=== PATIENT | male | born 1955 | race Caucasian/White ===

== ENCOUNTER → 2017-01-23 | Outpatient (CLI) | payer BC, OTHER ==
[~2017-01-23] VITALS: Ht 180.3 cm; Wt 127.0 kg
[~2017-01-23] MED LIST: ASPI1TAB PO; FOLI1TAB2 PO; INVO100T PO; JANU100T PO; LIDOCAINE 2% INJ 100 MG/5 ML SDV (FOR ANES.) As Ordered ONE; LOSA50TA21 PO; METF500T PO; NS 1,000 ML IV SCH; OMEP40CA2 PO; PRAV10TA PO; PROPOFOL 200 MG/20 ML VIAL As Ordered ONE; REPA1TAB6 PO; SERT50TA PO
--- NOTE | 2017-01-23 09:42 | ROOR ---
Patient Name: Marvin Gilman Procedure Date: 01/23/2017 9:28 AM Date of : 1955 Age: 61 Room: [facility] Gender: Male Note Status: Finalized Procedure: Upper GI endoscopy Indications: Epigastric abdominal pain, Heartburn Providers: Sea Castillo MD Referring MD: ASAEL PICKERING MD Requesting Provider: Medicines: Monitored Anesthesia Care Complications: No immediate complications. Procedure: Pre-Anesthesia Assessment: - The heart rate, respiratory rate, oxygen saturations, blood pressure, adequacy of pulmonary ventilation, and response to care were monitored throughout the procedure. The Endoscope was introduced through the mouth, and advanced to the second part of duodenum. The upper GI endoscopy was accomplished without difficulty. The patient tolerated the procedure well. Findings: The Z-line was regular and was found 40 cm from the incisors. The exam was otherwise without abnormality. No other significant abnormalities were identified in a careful examination of the stomach. The exam of the duodenum was otherwise normal. Impression: - Z-line regular, 40 cm from the incisors. - The examination was otherwise normal. - No specimens collected. - The examination was otherwise normal. Recommendation: - Patient has a contact number available for emergencies. The signs and symptoms of potential delayed complications were discussed with the patient. Return to normal activities tomorrow. Written discharge instructions were provided to the patient. - High fiber diet. - Discharge patient to home. - Follow an antireflux regimen. - Continue present medications. - Return to referring physician. - The findings and recommendations were discussed with the patient's family. Sae Castillo MD Sea Castillo MD 01/23/2017 9:41:52 AM This report has been signed electronically. Number of Addenda: 0 Note Initiated On: 01/23/2017 9:28 AM Estimated Blood Loss: Estimated blood loss: none.
[2017-01-23 10:07] VITALS: BP 120/63
== END | disposition home or self-care (01) ==
LOC: M OPP 08:42
PROVIDERS: ATTEND Internal Medicine Gastroenterology
DX: R10.13 Epigastric pain (principal); R12 Heartburn; I10 Essential (primary) hypertension; E78.5 Hyperlipidemia, unspecified; E11.9 Type 2 diabetes mellitus without complications; R23.3 Spontaneous ecchymoses; M19.90 Unspecified osteoarthritis, unspecified site; G47.30 Sleep apnea, unspecified; R06.83 Snoring; Z79.82 Long term (current) use of aspirin; Z79.84 Long term (current) use of oral hypoglycemic drugs; Z79.899 Other long term (current) drug therapy; Z80.0 Family history of malignant neoplasm of digestive organs; Z83.71 Family history of colonic polyps; Z87.891 Personal history of nicotine dependence

== ENCOUNTER → 2018-02-20 | Outpatient (CLI) | payer BC, OTHER ==
[2018-02-20 13:23] LABS: APPEARANCE, URINE CLEAR (CLEAR); BACTERIA, URINE AUTO NEGATIVE (NEGATIVE); BILIRUBIN, URINE AUTO NEGATIVE (NEGATIVE); BLOOD, URINE BLOOD 1+ (NEGATIVE); COLOR, URINE YELLOW (YELLOW); GLUCOSE, URINE (UA) AUTO 3+ mg/dL (NEGATIVE); KETONE, URINE AUTO NEGATIVE (NEGATIVE); LEUKOCYTE ESTERASE, URINE AUTO NEGATIVE (NEGATIVE); NITRITE, URINE AUTO NEGATIVE (NEGATIVE); PROTEIN, URINE AUTO NEGATIVE (NEGATIVE); RBC, URINE AUTO 29 /HPF (0-3); SPECIFIC GRAVITY URINE AUTO 1.023 (1.002-1.035); SQUAMOUS EPITHELIAL CELL UR AU 0 /HPF (0-6); UROBILINOGEN, URINE AUTO 0.2 mg/dL (0.0-2.0); WBC, URINE AUTO 3 /HPF (0-3)
[2018-02-20 13:55] LABS: ANION GAP 9 MEQ/L (8-16); BLOOD UREA NITROGEN 14 MG/DL (7-18); CALCIUM LEVEL 9.3 MG/DL (8.8-10.2); CARBON DIOXIDE LEVEL 26 MEQ/L (21-32); CHLORIDE LEVEL 103 MEQ/L (98-107); CREATININE FOR GFR 0.86 MG/DL (0.70-1.30); GLOMERULAR FILTRATION RATE > 60.0 (>49); GLUCOSE, FASTING 179 MG/DL (70-100); POTASSIUM SERUM 4.2 MEQ/L (3.5-5.1); SODIUM LEVEL 138 MEQ/L (136-145)
== END ==
LOC: M SMT 10:20
DX: R31.0 Gross hematuria (principal)
CPT/HCPCS: 80048

== ENCOUNTER → 2018-02-28 | Outpatient (CLI) | payer BC, OTHER ==
[~2018-02-28] MED LIST changes: -ASPI1TAB PO; -FOLI1TAB2 PO; -INVO100T PO; +ISOVUE-370 76% 100ML VIAL (Q9967) As Ordered; -JANU100T PO; -LIDOCAINE 2% INJ 100 MG/5 ML SDV (FOR ANES.) As Ordered ONE; -LOSA50TA21 PO; -METF500T PO; -NS 1,000 ML IV SCH; -OMEP40CA2 PO; -PRAV10TA PO; -PROPOFOL 200 MG/20 ML VIAL As Ordered ONE; -REPA1TAB6 PO; -SERT50TA PO
== END ==
LOC: M RAD 15:38
DX: R31.0 Gross hematuria (principal)
CPT/HCPCS: Q9967

== ENCOUNTER → 2018-04-05 | Outpatient (REF) | payer BC, OTHER ==
[2018-04-05 17:42] LABS: COLLAGEN EPINEPHRINE 110 SECONDS (74-162)
[2018-04-05 17:47] LABS: COLLAGEN ADP 101 SECONDS (56-103)
[2018-04-05 17:59] LABS: INR 1.03; PROTHROMBIN TIME 13.6 SECONDS (12.4-14.5)
[2018-04-05 18:00] LABS: PARTIAL THROMBOPLASTIN TIME 38.9 SECONDS (26.8-37.9)
[2018-04-10 07:25] LABS: DRVV SCREEN 47.4 SEC
[2018-04-10 07:28] LABS: PTT LUPUS TYPE ANTICOAG SCREEN 1.1 (0-1.2)
[2018-04-16 13:53] LABS: APTT 1:2 SUBSTITUTION 34.5 SECONDS; PARTIAL THROMBOPLASTIN TIME 38.9 SECONDS (26.8-37.9)
== END ==
LOC: M LAB REF 16:41
DX: R49.1 Aphonia (principal)
CPT/HCPCS: 86147

== ENCOUNTER → 2018-05-21 | Outpatient (REF) | payer OTHER ==
[2018-05-21 13:21] LABS: APPEARANCE, URINE CLOUDY (CLEAR); BACTERIA, URINE AUTO 1+ (NEGATIVE); BILIRUBIN, URINE AUTO NEGATIVE (NEGATIVE); BLOOD, URINE BLOOD 3+ (NEGATIVE); COLOR, URINE YELLOW (YELLOW); GLUCOSE, URINE (UA) AUTO 3+ mg/dL (NEGATIVE); KETONE, URINE AUTO NEGATIVE (NEGATIVE); LEUKOCYTE ESTERASE, URINE AUTO 3+ (NEGATIVE); NITRITE, URINE AUTO POSITIVE (NEGATIVE); PROTEIN, URINE AUTO 1+ mg/dL (NEGATIVE); RBC, URINE AUTO TNTC /HPF (0-3); SPECIFIC GRAVITY URINE AUTO 1.022 (1.002-1.035); SQUAMOUS EPITHELIAL CELL UR AU 0 /HPF (0-6); UROBILINOGEN, URINE AUTO 0.2 mg/dL (0.0-2.0); WBC, URINE AUTO TNTC /HPF (0-3)
== END ==
LOC: M SMT 12:58
DX: R82.90 Unspecified abnormal findings in urine (principal)
CPT/HCPCS: 81001

== ENCOUNTER → 2018-05-28 | Outpatient (CLI) | payer BC, OTHER | LOC: M CARPUL 09:58 | DX: C67.9 Malignant neoplasm of bladder, unspecified (principal) | CPT/HCPCS: 93306 ==

== ENCOUNTER → 2018-05-28 | Outpatient (CLI) | payer BC, OTHER | LOC: M RAD 09:51 | DX: C67.9 Malignant neoplasm of bladder, unspecified (principal); M51.36 Other intervertebral disc degeneration, lumbar region; M51.34 Other intervertebral disc degeneration, thoracic region; M17.0 Bilateral primary osteoarthritis of knee | CPT/HCPCS: 78306 ==

== ENCOUNTER → 2018-07-31 | Outpatient (REF) | payer BC, OTHER ==
[2018-08-01 10:53] LABS: IMMEDIATE SPIN CROSSMATCH 1 2
== END ==
LOC: M LAB REF 14:03
PROVIDERS: Pediatrics
DX: D64.9 Anemia, unspecified (principal)
CPT/HCPCS: 86900

== ENCOUNTER → 2018-07-31 | Outpatient (CLI) | payer BC, OTHER | LOC: M RAD 13:21 | DX: R06.00 Dyspnea, unspecified (principal); R00.0 Tachycardia, unspecified; K86.2 Cyst of pancreas; C68.0 Malignant neoplasm of urethra | CPT/HCPCS: Q9967 ==

== ENCOUNTER 2018-08-01 09:47 | Outpatient (CLI) | payer BC, OTHER ==
[2018-08-01] MEDS: diphenhydrAMINE 25 MG CAP PO (10:39)
[2018-08-01] MEDS: ACETAMINOPHEN TAB 650MG DOSE (2X325MG) PO (10:39)
== END 2018-08-01 16:45 | disposition home or self-care (01) ==
LOC: M OPCLI4 09:47 → M MSPAV 09:52 → M OPCLI4 16:45
DX: D64.9 Anemia, unspecified (principal)
CPT/HCPCS: 36430

== ENCOUNTER → 2018-11-27 | Outpatient (REF) | payer OTHER ==
[~2018-11-27] MED LIST changes: +ASPI1TAB PO; +BACT800T5 PO; +FOLI1TAB11 PO; +IBUP80TA PO; +INVO100T PO; -ISOVUE-370 76% 100ML VIAL (Q9967) As Ordered; +JANU100T PO; +LOSA50TA5 PO; +METF500T13 PO; +MULT1TAB10 PO; +OMEP40CA2 PO; +PRAV10TA4 PO; +REPA1TAB6 PO; +SERT50TA PO
== END ==
LOC: M SMT 17:08
PROVIDERS: ATTEND Urology
DX: C67.9 Malignant neoplasm of bladder, unspecified (principal)

== ENCOUNTER → 2018-11-29 | Outpatient (CLI) | payer BC, OTHER | LOC: M LAB 11:42 | PROVIDERS: ATTEND Urology | DX: C61 Malignant neoplasm of prostate (principal) ==

== ENCOUNTER → 2018-11-29 | Outpatient (CLI) | payer BC, OTHER ==
[2018-11-29 13:41] LABS: CREATININE FOR GFR 1.8 MG/DL (0.70-1.30)
== END ==
LOC: M LAB 11:32
PROVIDERS: ATTEND Urology
DX: C61 Malignant neoplasm of prostate (principal); K86.2 Cyst of pancreas; R59.0 Localized enlarged lymph nodes

== ENCOUNTER 2019-01-22 07:42 | Day surgery (SDC) | payer BC, OTHER ==
[~2019-01-22] VITALS: Ht 180.3 cm; Wt 110.4 kg
[~2019-01-22 07:42] MED LIST changes: +LIDOCAINE 2% INJ 100 MG/5 ML SDV (FOR ANES.) As Ordered ONE; +NS 1,000 ML IV ONE; +PROPOFOL 200 MG/20 ML VIAL As Ordered ONE; +RANI-280 PO
[2019-01-22] MEDS ORDERED: PROPOFOL 200 MG/20 ML VIAL As Ordered ONE ×2 (09:23→09:44)
--- NOTE | 2019-01-22 09:53 | ROOR ---
Patient Name: Marvin Gilman Procedure Date: 01/22/2019 9:02 AM Date of : 1955 Age: 63 Room: [facility] Gender: Male Note Status: Finalized Procedure: Total Colonoscopy to Cecum + Cold Snare Polypectomy + Hemoclips Indications: Colon cancer screening in patient at increased risk: Colorectal cancer in father Providers: Sea Castillo MD Referring MD: ASAEL PICKERING MD Requesting Provider: Medicines: Monitored Anesthesia Care Complications: No immediate complications. Procedure: Pre-Anesthesia Assessment: - The heart rate, respiratory rate, oxygen saturations, blood pressure, adequacy of pulmonary ventilation, and response to care were monitored throughout the procedure. The Colonoscope was introduced through the anus and advanced to the cecum, identified by appendiceal orifice and ileocecal valve. The colonoscopy was performed without difficulty. The patient tolerated the procedure well. The quality of the bowel preparation was good. Findings: The perianal and digital rectal examinations were normal. Non-bleeding internal hemorrhoids were found during retroflexion. The hemorrhoids were small and Grade I (internal hemorrhoids that do not prolapse). Multiple small and large-mouthed diverticula were found in the recto-sigmoid colon, sigmoid colon and descending colon. A small polyp was found at 30 cm proximal to the anus. The polyp was sessile. The polyp was removed with a cold snare. Resection and retrieval were complete. A large polyp was found at 40 cm proximal to the anus. The polyp was semi-pedunculated. The polyp was removed with a cold snare. Resection and retrieval were complete. To prevent bleeding after the polypectomy, two hemostatic clips were successfully placed (MR conditional). There was no bleeding at the end of the procedure. A medium polyp was found in the transverse colon. The polyp was sessile. The polyp was removed with a cold snare. Resection and retrieval were complete. The exam was otherwise without abnormality on direct and retroflexion views. Impression: - Non-bleeding internal hemorrhoids. - Diverticulosis in the recto-sigmoid colon, in the sigmoid colon and in the descending colon. - One small polyp at 30 cm proximal to the anus, removed with a cold snare. Resected and retrieved. - One large polyp at 40 cm proximal to the anus, removed with a cold snare. Resected and retrieved. Clips (MR conditional) were placed. - One medium polyp in the transverse colon, removed with a cold snare. Resected and retrieved. - The examination was otherwise normal on direct and retroflexion views. - The exam was otherwise normal to the cecum. Recommendation: - Patient has a contact number available for emergencies. The signs and symptoms of potential delayed complications were discussed with the patient. Return to normal activities tomorrow. Written discharge instructions were provided to the patient. - High fiber diet. - Discharge patient to home. - Continue present medications. - Await pathology results. - Telephone GI clinic for pathology results in 1 week. - Repeat colonoscopy for surveillance based on pathology results. - Return to referring physician. - The findings and recommendations were discussed with the patient's family. Sea Castillo MD Sea Castillo MD 01/22/2019 9:52:56 AM This report has been signed electronically. Number of Addenda: 0 Note Initiated On: 01/22/2019 9:02 AM Estimated Blood Loss: Estimated blood loss: none.
[2019-01-22 10:05] VITALS: BP 134/83
== END 2019-01-22 10:14 | disposition home or self-care (01) ==
LOC: M OPP 07:42
PROVIDERS: ATTEND Internal Medicine Gastroenterology
DX: Z12.11 Encounter for screening for malignant neoplasm of colon (principal); Z80.0 Family history of malignant neoplasm of digestive organs; K64.0 First degree hemorrhoids; D12.3 Benign neoplasm of transverse colon; K57.30 Diverticulosis of large intestine without perforation or abscess without bleeding; G47.30 Sleep apnea, unspecified; Z79.84 Long term (current) use of oral hypoglycemic drugs; Z79.899 Other long term (current) drug therapy

== ENCOUNTER → 2019-06-06 | Outpatient (CLI) | payer BC, OTHER ==
[~2019-06-06] MED LIST changes: -ASPI1TAB PO; +ASPI81TA26 PO; +GASTROGRAFIN SOLUTION 30ML (Q9963) As Ordered ONE; -LIDOCAINE 2% INJ 100 MG/5 ML SDV (FOR ANES.) As Ordered ONE; -NS 1,000 ML IV ONE; -PROPOFOL 200 MG/20 ML VIAL As Ordered ONE; +SERT-141 PO; -SERT50TA PO; +SILD100T PO
--- NOTE | 2019-06-06 10:31 | REP ---
Clinical: Stage II bladder cancer. Technique: Axial images from the lung bases to the pubic symphysis using oral contrast material with coronal and sagittal re-formations. Comparison: 02/28/2018. Findings: The patient is noted to be status post bladder resection with an ileal conduit and urostomy via the anterior abdominal wall. The kidneys demonstrate mild chronic-appearing perinephric stranding without hydroureteronephrosis. At the site of urostomy there is a nonobstructed parastomal hernia containing a single loop of small bowel and small amount of mesenteric fat. Adenopathy within the gisela hepatis and gastrohepatic ligament with lymph nodes measuring up to 2.5 cm again identified and essentially unchanged as compared to prior examination. Liver, spleen/splenule, pancreas, gallbladder, and bilateral adrenal glands are normal. The enteric system is without obstruction or acute inflammatory process. Sigmoid diverticula noted without acute diverticulitis. Normal appendix identified in the right lower quadrant. Small to moderate fat containing inguinal hernias noted (right greater than left) no ascites. No free air. Abdominal aorta without aneurysm or dissection. Osseous structures demonstrate age-related changes without focal abnormality. Lung bases demonstrate 2 mm noncalcified nodule in the periphery of the left lower lobe (image 1) which represents a new finding when compared to chest CT dated 07/31/2018. Impression: 1. Evidence of prior bladder resection and prostatectomy with ileal conduit and urostomy. The bilateral kidneys/ureters appear normal. 2. There is a parastomal hernia containing small amount of fat and nonobstructed loop of small bowel. 3. Stable adenopathy at the gisela hepatis and gastrohepatic ligament with lymph nodes again noted up to 2.5 cm. 4. Sigmoid diverticula without acute diverticulitis. 5. Relatively meter 2 mm noncalcified nodule in the left lower lung lobe. Consider short-term follow-up contrast enhanced chest CT for further investigation. Electronically Signed by Rajendra Fang MD 06/06/2019 10:23 A
== END ==
LOC: M RAD 08:12
PROVIDERS: ATTEND Internal Medicine Medical Oncology
DX: C67.9 Malignant neoplasm of bladder, unspecified (principal)

== ENCOUNTER → 2019-08-22 | Outpatient (REF) | payer BC, OTHER ==
[~2019-08-22] MED LIST changes: -GASTROGRAFIN SOLUTION 30ML (Q9963) As Ordered ONE; -OMEP40CA2 PO; +OMEP40CA97 PO
== END ==
LOC: M SMT 16:48
PROVIDERS: ATTEND Urology
DX: C67.9 Malignant neoplasm of bladder, unspecified (principal)

== ENCOUNTER → 2019-10-02 | Outpatient (CLI) | payer BC, OTHER ==
[~2019-10-02] MED LIST changes: +GASTROGRAFIN SOLUTION 30ML (Q9963) As Ordered ONE; +ISOVUE-370 76% 100ML VIAL (Q9967) As Ordered ONE
--- NOTE | 2019-10-02 13:14 | REP ---
Clinical: History of prostate cancer. Technique: Axial noncontrast images from the thoracic inlet to the upper abdomen with coronal and sagittal re-formations. Comparison: 08/28/2018. Findings: The bilateral lung cruz are well-aerated and clear. Few 1-2 mm calcified densities are appreciated suggesting prior granulomas disease. No consolidation, significant nodule or mass lesion. No pleural effusion. No pneumothorax. Tracheobronchial tree is patent. No adenopathy noted. Mediastinum demonstrates atherosclerotic changes to the thoracic aorta and coronary arteries without aortic aneurysm or cardiomegaly. No pericardial effusion. Musculoskeletal structures demonstrate age-related degenerative changes without focal osseous abnormality noted. Impression: No acute mediastinal or pleuroparenchymal process. No evidence for metastatic disease. Electronically Signed by Rajendra Fang MD 10/02/2019 01:04 P
--- NOTE | 2019-10-02 13:23 | REP ---
Clinical: History of prostate cancer. Technique: Axial noncontrast images from the lung bases to the pubic symphysis with coronal and sagittal re-formations Comparison: 06/06/2019, 08/28/2018. Findings: Liver, spleen, gallbladder, bilateral adrenal glands and kidneys are relatively normal for noncontrast evaluation. Low density area within the body/tail of the pancreas and prominent lymph nodes in the region of the gisela hepatis, peripancreatic space, and gastrohepatic ligament appear essentially stable. The patient is again noted to be status post prostatectomy and bladder resection with ileal conduit via the right anterior abdominal wall. Two fat containing ventral hernias are identified at the level of the stoma which has increased in size from prior examination and measure approximately 7.5 and 4.5 cm maximal transverse diameter (image 84). Inferior to these fat containing hernias there is a left paracentral ventral hernia which has increased in size and now contains multiple loops of nonobstructed small bowel and omental fat measuring roughly 8.5 cm diameter (image 102). The enteric system is without obstruction or acute inflammatory process. Normal terminal ileum, cecum and appendix identified in the right lower quadrant. Few scattered sigmoid diverticula noted without acute diverticulitis. Fat containing inguinal hernias are also identified and stable (right greater than left). No ascites. No free air. No retroperitoneal adenopathy. Abdominal aorta without aneurysm. Osseous structures demonstrate degenerative changes without focal abnormality. Impression: 1. Stable low density lesion within the pancreatic body/tail which may represent cyst along with stable upper abdominal lymph nodes. 2. Increased peristomal and ventral hernias including left lower abdominal wall hernia containing omental fat and multiple loops of nonobstructed small bowel. Stable fat-containing inguinal hernias. 3. No evidence for ascites, new adenopathy, or new metastatic focus. 4. Further nonacute findings as above. Electronically Signed by Rajendra Fang MD 10/02/2019 01:15 P
== END ==
LOC: M RAD 11:04
PROVIDERS: ATTEND Nurse Practitioner Family
DX: K86.89 Other specified diseases of pancreas (principal); K43.9 Ventral hernia without obstruction or gangrene; K43.5 Parastomal hernia without obstruction or gangrene; C61 Malignant neoplasm of prostate; C67.9 Malignant neoplasm of bladder, unspecified
CPT/HCPCS: 71250; 74176; Q9963

== ENCOUNTER 2019-10-08 05:59 | Inpatient (IN) | payer BC, OTHER ==
[~2019-10-08] VITALS: Ht 180.3 cm; Wt 120.6 kg
[2019-10-08] VITALS (7 sets, daily range): BP systolic 115–128; BP diastolic 65–71
[~2019-10-08 05:59] MED LIST changes: -GASTROGRAFIN SOLUTION 30ML (Q9963) As Ordered ONE; -ISOVUE-370 76% 100ML VIAL (Q9967) As Ordered ONE
[2019-10-08] MEDS ORDERED: cefoTEtan DISODIUM 2 GM in D5W MINI-BAG PLUS 50 ML IV ONE ×2 (06:00→20:00)
[2019-10-08] MEDS ORDERED: LR 1,000 ML IV ONE (06:00)
[2019-10-08] MEDS ORDERED: BUPIVACAINE HCL 0.25% 30 ML VIAL As Ordered ONE (07:10)
[2019-10-08] MEDS ORDERED: BUPIVACAINE LIPOSOME/PF 1.3% 20ML VIAL (13.3MG/ML)(EXPAREL)(C9290 PER1MG) As Ordered ONE (07:11)
[2019-10-08] MEDS ORDERED: dexameTHASONE 4 MG/ML 1ML VIAL (J1100) As Ordered ONE (07:20)
[2019-10-08] MEDS ORDERED: LIDOCAINE 2% INJ 100 MG/5 ML SDV (FOR ANES.) As Ordered ONE (07:20)
[2019-10-08] MEDS ORDERED: ROCURONIUM BROMIDE 50 MG/5 ML VIAL As Ordered ONE ×5 (07:20→13:41)
[2019-10-08] MEDS ORDERED: fentaNYL 250 MCG/5 ML INJECTION (J3010) As Ordered ONE (07:20)
[2019-10-08] MEDS ORDERED: ONDANSETRON 4MG/2ML VIAL (J2405) As Ordered ONE (07:20)
[2019-10-08] MEDS ORDERED: PROPOFOL 200 MG/20 ML VIAL As Ordered ONE (07:20)
[2019-10-08] MEDS ORDERED: MIDAZOLAM INJ 2 MG/2 ML VIAL (J2250) As Ordered ONE (07:20)
[2019-10-08] MEDS ORDERED: HYDROmorphone HCL 2 MG/ML 1ML VIAL (J1170) As Ordered ONE (10:43)
[2019-10-08] MEDS ORDERED: KETOROLAC 60 MG/2 ML VIAL (J1885) As Ordered ONE (13:45)
[2019-10-08] MEDS ORDERED: SUGAMMADEX SODIUM 500 MG/5 ML VIAL (BRIDION) As Ordered ONE (14:25)
[2019-10-08] MEDS ORDERED: LACRILUBE (AKWA TEARS) OPHTH OINT 3.5 GM As Ordered ONE (14:31)
[2019-10-08] MEDS ORDERED: fentaNYL 100 MCG/2 ML INJECTION (J3010) IV PRN (15:00)
[2019-10-08] MEDS ORDERED: HYDROMORPHONE HCL 0.5 MG/ 0.5 ML SYRINGE (J1170 PER 1) IV PRN (15:00)
[2019-10-08] MEDS ORDERED: ONDANSETRON 4MG/2ML VIAL (J2405) IV PRN ×2 (15:00→15:15)
[2019-10-08] MEDS ORDERED: PROMETHAZINE INJ 25 MG/ML VIAL (J2550) IV PRN (15:00)
[2019-10-08] MEDS ORDERED: LR 1,000 ML IV SCH (15:00)
[2019-10-08] MEDS ORDERED: MORPHINE 2 MG/ML 1ML VIAL (J2270) IV PRN (15:15)
[2019-10-08] MEDS ORDERED: ACETAMINOPHEN TAB 650MG DOSE (2X325MG) PO PRN (15:15)
[2019-10-08] MEDS ORDERED: GLUCOSE 4 GM CHEW TABLET PO PRN (15:15)
[2019-10-08] MEDS ORDERED: KETOROLAC 30 MG/ML VIAL (J1885) IV PRN (15:15)
[2019-10-08] MEDS ORDERED: DEXTROSE 50% 50 ML SYRINGE IV PRN (15:15)
[2019-10-08] MEDS ORDERED: GLUCAGON FOR INJ 1 MG VIAL (J1610) SC PRN (15:15)
[2019-10-08] MEDS: LR 1,000 ML IV SCH (17:10)
[2019-10-08] MEDS: NORCO, ANEXSIA 5/325MG TABLET (HYDROcodone/ACETAMINOPHEN) PO PRN (17:27)
[2019-10-08] MEDS: HumaLOG INSULIN (NovoLOG) PER UNIT SC SCH ×2 (17:30→21:00)
[2019-10-08] MEDS ORDERED: FAMOTIDINE 20 MG TAB PO SCH (21:00)
[2019-10-08] MEDS: ENOXAPARIN 40 MG/0.4 ML SYRINGE (J1650) SC SCH (22:10)
[2019-10-09 02:00] VITALS: BP 105/62
[2019-10-09] MEDS: LR 1,000 ML IV SCH (02:44)
[2019-10-09] MEDS: NORCO, ANEXSIA 5/325MG TABLET (HYDROcodone/ACETAMINOPHEN) PO PRN ×3 (05:37→15:10)
[2019-10-09 06:00] VITALS: BP 119/65
[2019-10-09 06:55] LABS: BASO # 0.1 10^3/uL (0.0-0.2); BASO % 0.5 % (0.0-1.0); EOS # 0.1 10^3/uL (0.0-0.5); HEMATOCRIT 34.7 % (42.0-52.0); HEMOGLOBIN 11.5 g/dl (13.5-17.5); LYMPH # 1.6 10^3/uL (1.5-5.0); LYMPH % 16.8 % (24.0-44.0); MEAN CORPUSCULAR HEMOGLOBIN 31.7 pg (27.0-33.0); MEAN CORPUSCULAR HGB CONC 33.1 g/dl (32.0-36.5); MEAN CORPUSCULAR VOLUME 95.6 fl (80.0-96.0); MONO % 10.5 % (0.0-5.0); NEUTROPHILS # 6.6 10^3/uL (1.5-8.5); NEUTROPHILS % 70.8 % (36.0-66.0); PLATELET COUNT, AUTOMATED 135 10^3/uL (150-450); RED BLOOD COUNT 3.63 10^6/uL (4.30-6.10); WHITE BLOOD COUNT 9.3 10^3/uL (4.0-10.0)
[2019-10-09 07:14] LABS: BILIRUBIN,TOTAL 0.3 MG/DL (0.2-1.0); CALCIUM LEVEL 8.2 MG/DL (8.8-10.2); CREATININE FOR GFR 1.97 MG/DL (0.70-1.30); TOTAL PROTEIN 6.5 GM/DL (6.4-8.2)
[2019-10-09] MEDS: SITagliptin 50 MG TAB (JANUVIA) PO SCH (08:08)
[2019-10-09] MEDS: PRAVASTATIN 20 MG TAB PO SCH (08:08)
[2019-10-09] MEDS: FOLIC ACID 1 MG TAB PO SCH (08:09)
[2019-10-09] MEDS: metFORMIN (GLUCOPHAGE) 500 MG TAB PO SCH ×2 (08:09→18:06)
[2019-10-09] MEDS: SERTRALINE HCL 50 MG TAB PO SCH (08:09)
[2019-10-09] MEDS: HumaLOG INSULIN (NovoLOG) PER UNIT SC SCH ×4 (08:10→20:42)
--- NOTE | 2019-10-09 08:36 | IPN ---
DATE OF SERVICE: 10/09/2019 HISTORY: The patient is one day postop from his laparoscopic repair of a parastomal hernia, two midline incisional hernias, and a right inguinal hernia. During the surgery, a small artery to the ileal conduit was cauterized. He tolerated the surgery well. He has been out of bed last evening. He is having some pain, particularly in the midportion of his abdomen. His urostomy is working well and he has an excellent urine output. Vital signs show that his temperature has remained afebrile. His pulse is in the 60s this morning. Blood pressure is good and his oxygen saturations on 2 liters of nasal cannula oxygen are normal. Intake and output shows that yesterday he had 3500 in with 1000 out. His urine output overnight was 800 mL. PHYSICAL EXAMINATION: The patient is lying quietly in the hospital bed. He is alert and oriented. Heart exam shows a regular rate and rhythm. The lungs are clear. The abdomen is mildly obese. His incisions that are exposed look good. He has four small dressings on the left side of the abdomen that are clean and dry. Examination of his urostomy shows that about a third of the circumference at the inferior edge looks a little dusky this morning. He has some mucus from the ostomy as well as clear urine. The abdomen shows no undue tenderness. LABORATORY STUDIES: This morning, show a white count of 9, hemoglobin of 12, hematocrit 35 and platelet count of 135,000. Differential count shows 71% neutrophils, 17% lymphocytes and 10% monocytes. Chemistry profile shows a sodium of 139, potassium 4.0, chloride 111, CO2 of 20, BUN of 28, creatinine 1.97 and a glucose of 114. His fingerstick blood sugars have ranged from 100 to 138. IMPRESSION: The patient is doing very well. He was advanced to full liquids this morning after tolerating clear liquids last evening very well. His urostomy is a little dusky at one corner and we will need to monitor this. PLAN: The patient will be advanced to a regular diet and I will saline lock his IV. He is encouraged to be up out of bed. We will monitor his ileal conduit. [facility]
[2019-10-09 10:00] VITALS: BP 127/67
[2019-10-09 14:00] VITALS: BP 113/60
[2019-10-09 18:00] VITALS: BP 109/63
[2019-10-09] MEDS: PERCOCET 5MG/325MG TAB PO PRN ×2 (19:09→23:12)
[2019-10-09 22:00] VITALS: BP 136/70
[2019-10-09] MEDS: ENOXAPARIN 40 MG/0.4 ML SYRINGE (J1650) SC SCH (23:11)
[2019-10-10 02:00] VITALS: BP 135/72
[2019-10-10 06:00] VITALS: BP 138/66
[2019-10-10] MEDS: HumaLOG INSULIN (NovoLOG) PER UNIT SC SCH ×2 (07:45→12:00)
[2019-10-10] MEDS: metFORMIN (GLUCOPHAGE) 500 MG TAB PO SCH (07:46)
[2019-10-10 10:05] VITALS: BP 130/75
[2019-10-10] MEDS: SITagliptin 50 MG TAB (JANUVIA) PO SCH (10:47)
[2019-10-10] MEDS: FOLIC ACID 1 MG TAB PO SCH (10:48)
[2019-10-10] MEDS: SERTRALINE HCL 50 MG TAB PO SCH (10:48)
[2019-10-10] MEDS: PRAVASTATIN 20 MG TAB PO SCH (10:48)
[2019-10-10] MEDS ORDERED: PERCOCET PO (11:43)
--- NOTE | 2019-10-10 20:54 | RO ---
DATE OF PROCEDURE: 10/10/2019 PREOPERATIVE DIAGNOSES 1. Parastomal hernia. 2. Two midline ventral incisional hernias. 3. Right inguinal hernia. POSTOPERATIVE DIAGNOSES 1. 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 2. Two midline ventral incisional hernias. 3. Right inguinal hernia, indirect. PROCEDURES PERFORMED 1. Robotic-assisted repair of parastomal and midline ventral incisional hernias using Parietex mesh. 2. Right inguinal hernia repair, robotic-assisted, laparoscopic with Bard 3-D Max light mesh. IMPLANTS: 1. The mesh utilized for the right inguinal hernia was lot #[id number], reference code #[id number]. 2. The mesh utilized for the ventral hernias and parastomal hernia was Parietex reference code [id number], lot #[id number]. SURGEON: Dr. Renaldo Figueroa SET UP OPERATOR: ROBERT Elias ANESTHESIA: General. INDICATIONS FOR PROCEDURE The patient is a 63-year-old man who had undergone a cystoprostatectomy approximately a year ago for cancer. He has an ileal conduit in the right lower quadrant. He noticed some bulging around the stoma within the last few months. He has also noticed bulging along his midline incision. He was evaluated with a CT scan and physical exam. He was found to have two midline ventral incisional hernias through his old scar. He had a parastomal hernia as well and was also found to have a reducible right inguinal hernia. The patient is now for a robotic-assisted laparoscopic repair of his parastomal hernia, his midline ventral incisional hernias, and his right inguinal hernia. OPERATIVE PROCEDURE The patient was brought to the operating room and placed on the table in a supine position. He was placed under general endotracheal anesthesia. His urostomy appliance in the right lower quadrant was removed and a new appliance was placed oriented to direct the bag off the right side of the abdomen. This was then covered with an OpSite. The abdomen was prepped with Chlorhexidine, a large Ioban drape was placed over the abdomen. The draping was concluded. The first trocar was placed in the left upper quadrant below the costal margin. 0.25% Marcaine was infiltrated at the trocar sites as they were placed. A Veress needle was inserted and after positive hanging drop test an 8 mm port was placed over 5 mm scope and advanced through the abdominal wall without difficulty. The scope was then inserted and initial examination showed some adhesions of omentum into the two midline ventral incisional hernias. There were a few adhesions also around the opening of the parastomal hernia. The second 8 mm port was placed in the lateral left midabdomen and a third trocar was placed in the left lower quadrant. The first trocar from the left upper quadrant was converted to a 12- mm port to subsequently allow placement of larger suture needles and mesh. The robot was docked in this configuration docking the camera port first and then targeting the midline ventral hernias. The additional ports were then docked and I then moved to the control console to begin the robotic portion of the procedure. The adhesions of the omentum at the hernia sites were readily lysed using the cauterizing scissors and the omentum was released. There were some adhesions around the parastomal hernia and these were also lysed. There were also some adhesions noted in the right lower quadrant and the inguinal hernia was not at first identified. There was a dimple on the left-hand side at the site of a potential left inguinal hernia but this did not appear to penetrate the fascia at all. In the course of freeing around the small bowel leading to the urostomy the ureteral anastomoses were identified and protected. A small band of what appeared to be a free adhesion on the lateral aspect of the small bowel was initially partially incised with some resulting bleeding and this was controlled with the force bipolar. This was then identified as representing the distal-most vascular attachment to the small bowel of the stoma. There was a suggestion of some faint darkening of the appearance of the bowel of the ileal conduit after this had been divided. I elected to proceed with the repair of the right inguinal hernia. To accomplish this, two additional ports were placed. One was placed slightly to the left of the midline in the epigastrium and a second port was placed slightly lower and to the right of the midline such that an instrument could be inserted above the midline hernias and allow free access to the hernia site without any interference from the ileal conduit. The robot was then redocked to the three ports across the upper abdomen. The patient was tilted to a Trendelenburg position. Some attachments of the bowel near the posterior edge of the hernia defect were divided. An arcuate incision was then made in the peritoneum above the evident hernia sac. This was begun at the region of the medial umbilical ligament and carried laterally toward the anterior-superior iliac spine. The peritoneal flap was developed by a combination of blunt and sharp dissection. The scissors were used to cauterize any small bleeding points. The patient was found to have some significant preperitoneal fat and several portions of this were excised and placed in a specimen bag for later removal. The hernia sac was inverted but was quite scarred in the area of the spermatic cord structures and so two rents occurred in the peritoneum of the hernia sac as this was freed completely and inverted back into the abdomen. The area of Willie's ligament was identified. The spermatic cord structures were preserved. A Bard 3-D Max light medium-size right-sided mesh was then inserted into the abdomen. This was placed into the preperitoneal space. This was tacked to the region of Willie's ligament with #2-0 Vicryl and a second tacking suture was placed at the upper outer edge of the mesh. This nicely covered the area of his hernia defect. The peritoneal flap was then closed with a running suture of #2-0 V-Loc. A second 2-0 V-Loc was used to close the two rents in the peritoneum. After completing the closure, the patient was returned to a nearly flat position with a slight head down only. Attention was then turned to the midline incisional hernias and the parastomal hernia. Repeat examination of the ileal conduit again showed that it appeared to be slightly congested or slightly less pink and a little darker in color, but certainly viable. Peristalsis continued. The parastomal hernia extended superiorly from where the stoma was adherent along the inferior edge of the opening. The muscles and fascia in the superior end of the opening were then approximated with a #1 Stratafix suture. Approximately three to four suture bites were taken as a running suture extending from superior to inferior to a point the opening appeared to be adequately narrowed. The suture was then used to take two additional sutures overlapping the first and the suture was then cut. The two midline incisional hernias were then better inspected. Each of these was approximately 4 cm in diameter but generally oval and oriented transversely. There were fairly large hernia sacs protruding through each defect. After careful inspection I elected to make a small open incision down the midline over both defects to remove the hernia sacs and free up the edges of the fascia to close these. Therefore the robot was undocked and the abdomen was deflated. An approximately 10-12 cm midline incision was made. This was deepened into the two hernia sacs. The hernia sacs were excised from both areas and sent as a surgical specimen. The fascial defects were exposed and were as previously described approximately 4 cm in maximal diameter mostly oriented transversely. The subcutaneous tissues were elevated off of the fascia to allow better exposure of the fascial edges and also allow slightly greater mobility of the tissue. Each defect was then closed transversely with interrupted simple sutures of #1-0 Ethibond. This appeared to give a good closure of both areas. The wound was then filled with a moistened lap pad. The abdomen was reinflated and the robot redocked. A 20 x 25 cm rectangular Parietex patch was selected. This was cut transversely 15 cm from one short end of the rectangle producing a 15 x 20 cm patch. This was the estimated size that I felt would adequately cover both of the midline sutured defects as well as drape down around the stoma in a Sugarbaker type of approach to manage the parastomal hernia. Because of tethering of the ileal conduit more centrally at its proximal end, this was not going to be able to be pulled up against the abdominal wall completely laterally. The patch was inserted into the abdomen. Inspection revealed that this was actually larger in size than needed. The 15 cm side was placed longitudinally to the left of the midline. Approximately 3 cm of the patch were then trimmed away to create a roughly 12 x 20 cm patch. Subsequently an additional 5 cm were trimmed off the lateral edge of the mesh resulting in a final size of the patch of approximately 12 x 15 cm. The left most edge of the patch which was placed several centimeters to the left of the midline to provide good overlap over the two sutured midline defects was tacked initially in place with several simple sutures of #2-0 Vicryl. The mesh was then tacked with several additional sutures, bringing this up to the abdominal wall over to the site of the stoma. The medial end was then sutured along the entire length of the mesh with a running #2-0 V-Loc suture. The lateral border of the mesh was notched to create two tails that would fold up around the inferior and superior aspect of the ileal conduit providing excellent coverage over the sutured portion of the parastomal hernia. The superior and inferior aspects of the mesh were then sutured along the circumference with running sutures of #2-0 V-Loc and #2-0 Vicryl was also used. The tails of the mesh laterally were brought in closer to the ileal conduit to allow these to wrap slightly around the lateral aspect. These tails were then sutured more securely on their medial aspects along the notched side of the mesh using some interrupted simple sutures of #2-0 Vicryl and some additional running sutures to tack these securely. I elected not to place any sutures directly from the mesh to the bowel. This suturing was all done with the abdominal pressure reduced to approximately 8-10 mmHg. The completed mesh application very nicely covered the midline defects with an excellent overlap on all sides and then did cover the entire area of the sutured parastomal hernia defect with a small collar of mesh extending from the abdominal wall down around the bowel. At this point, a final inspection showed no evidence of any bleeding. Final inspection of the ileal conduit showed that it remained viable, though again still a slightly darker shade than the other small bowel. The robot was then undocked. A specimen retrieval pouch had been placed earlier and contained the preperitoneal fat that had been resected during the inguinal hernia repair. The abdomen was deflated and the specimen retrieval pouch was removed through the 12-mm port in the left upper quadrant. The midline incision was closed with some #2-0 chromic in the subcutaneous tissues and the skin edges were approximated with a running subcuticular #4-0 Vicryl. The right upper quadrant trocar site was also closed with buried #4-0 Vicryl. Leah Lieberman assisted during the procedure in changing of instruments, insertion of needles and sutures and placement of the mesh. She also closed the trocar sites. These were all closed with buried Vicryl. The right upper quadrant trocar site and the midline incision were dressed with Dermabond. The sites to the left of the midline were dressed with Steri-Strips and 2 x 2. The patient tolerated the procedure well. He was awakened in the operating room, extubated and moved to the recovery room in stable condition. DIMA
--- NOTE | 2019-10-12 07:14 | IPN ---
DATE: 10/10/2019 HISTORY: The patient is now 2 days postop from his laparoscopic repair of a parastomal hernia, midline ventral incisional hernias, and a right inguinal hernia. He has done well over the past day. He was having some muscle spasms of the abdominal wall yesterday; he reports these have ceased. He is sitting up in a chair when I came to visit him today. He has been eating well and his urine output is excellent. He has not noticed any problems with his urostomy, which continues to drain clear urine with some mucus. Vital signs: Show that he has been afebrile with a pulse in the 70s and an excellent blood pressure. Intake and output show that yesterday he had 2000 mL of oral intake with a urine output of 3000. PHYSICAL EXAMINATION: The patient is alert and appears comfortable. The abdomen is nondistended. He has bowel sounds present. He reports he has been passing gas but has not yet had a bowel movement. His urostomy looks pink and appears to be functioning well. His incisions all appear clean with no sign of infection. IMPRESSION: The patient appears to be doing much better today with diminished pain and improved mobility. PLAN: The patient will be discharged home today. His ostomy appears viable, and there has been no bleeding or change in the appearance. He can take a diet as tolerated. He was advised against any strenuous physical activity but was encouraged to pursue light activities and walking. He will be provided a prescription for some Percocet to take on an as-needed basis for moderate to severe pain. He has a appointment scheduled to follow up on 10/21/2019, and he can call sooner for any problems. He can shower as desired but was advised to leave the Steri-Strips in place on the wounds that have them. DIMA
== END 2019-10-10 12:45 | disposition home or self-care (01) | DRG 952 ==
LOC: M SDC 05:59 → M MSPAV 16:48 → M SDC 10-09 17:05 → M MSPAV 10-09 17:06
PROVIDERS: ADMIT Surgery; ATTEND Surgery
PROC: 0WUF4JZ Supplement Abdominal Wall with Synthetic Substitute, Percutaneous Endoscopic Approach (ICD-10-PCS; principal; 2019-10-09)
PROC: 0YU54JZ Supplement Right Inguinal Region with Synthetic Substitute, Percutaneous Endoscopic Approach (ICD-10-PCS; 2019-10-09)
PROC: 8E0W4CZ Robotic Assisted Procedure of Trunk Region, Percutaneous Endoscopic Approach (ICD-10-PCS; 2019-10-09)
DX: N99.523 Herniation of incontinent stoma of urinary tract (principal); I10 Essential (primary) hypertension; K40.90 Unilateral inguinal hernia, without obstruction or gangrene, not specified as recurrent; K43.5 Parastomal hernia without obstruction or gangrene; K43.9 Ventral hernia without obstruction or gangrene; E11.9 Type 2 diabetes mellitus without complications; E78.00 Pure hypercholesterolemia, unspecified; F41.9 Anxiety disorder, unspecified; F32.9 Major depressive disorder, single episode, unspecified; K21.9 Gastro-esophageal reflux disease without esophagitis; G47.33 Obstructive sleep apnea (adult) (pediatric); Z85.51 Personal history of malignant neoplasm of bladder; Z88.8 Allergy status to other drugs, medicaments and biological substances; Z79.899 Other long term (current) drug therapy

== ENCOUNTER → 2020-03-10 | Outpatient (REF) | payer OTHER ==
[~2020-03-10] MED LIST changes: +PERCOCET PO
== END ==
LOC: M LAB REF 10:34
PROVIDERS: ATTEND Urology
DX: C61 Malignant neoplasm of prostate (principal)

== ENCOUNTER → 2020-04-24 | Outpatient (CLI) | payer OTHER ==
[~2020-04-24] MED LIST changes: +FARX1TAB3 PO; +MECO5000 PO; +TRAD5TAB PO
== END ==
LOC: M LABSMTC 10:11
PROVIDERS: ATTEND Anesthesiology
DX: Z11.59 Encounter for screening for other viral diseases (principal)
CPT/HCPCS: C9803; U0003

== ENCOUNTER 2020-04-27 11:00 | Day surgery (SDC) | payer BC, OTHER ==
[~2020-04-27] VITALS: Ht 180.3 cm; Wt 71.6 kg
[~2020-04-27 11:00] MED LIST changes: +NS 1,000 ML IV ONE
[2020-04-27] MEDS ORDERED: propofoL 200 MG/20 ML VIAL As Ordered ONE ×2 (12:38→12:46)
--- NOTE | 2020-04-27 13:09 | ROOR ---
Patient Name: Marvin Gilman Procedure Date: 04/27/2020 12:35 PM Date of : 1955 Age: 64 Room: [facility] Gender: Male Note Status: Finalized Procedure: Total Colonoscopy to Cecum + Cold Snare Polypectomy + Hemoclips Indications: High risk colon cancer surveillance: Personal history of colonic polyps, High risk colon cancer surveillance: Personal history of adenoma with villous component Providers: Sea Castillo MD Referring MD: ASAEL PICKERING MD Requesting Provider: Medicines: Monitored Anesthesia Care Complications: No immediate complications. Procedure: Pre-Anesthesia Assessment: - The heart rate, respiratory rate, oxygen saturations, blood pressure, adequacy of pulmonary ventilation, and response to care were monitored throughout the procedure. The Colonoscope was introduced through the anus and advanced to the cecum, identified by appendiceal orifice and ileocecal valve. The colonoscopy was performed without difficulty. The patient tolerated the procedure well. The quality of the bowel preparation was excellent. Findings: The perianal and digital rectal examinations were normal. Non-bleeding internal hemorrhoids were found during retroflexion. The hemorrhoids were small and Grade I (internal hemorrhoids that do not prolapse). Multiple small and large-mouthed diverticula were found in the recto-sigmoid colon, sigmoid colon and descending colon. A small polyp was found at 40 cm proximal to the anus. The polyp was sessile. The polyp was removed with a cold snare. Resection and retrieval were complete. To prevent bleeding after the polypectomy, two hemostatic clips were successfully placed. There was no bleeding at the end of the procedure. The exam was otherwise without abnormality on direct and retroflexion views. Impression: - Non-bleeding internal hemorrhoids. - Diverticulosis in the recto-sigmoid colon, in the sigmoid colon and in the descending colon. - One small polyp at 40 cm proximal to the anus, removed with a cold snare. Resected and retrieved. Clips were placed. - The examination was otherwise normal on direct and retroflexion views. - The exam was otherwise normal to the cecum. Recommendation: - Patient has a contact number available for emergencies. The signs and symptoms of potential delayed complications were discussed with the patient. Return to normal activities tomorrow. Written discharge instructions were provided to the patient. - High fiber diet. - Discharge patient to home. - Continue present medications. - Await pathology results. - Telephone GI clinic for pathology results in 1 week. - Repeat colonoscopy in 3 years for surveillance based on pathology results. - Return to referring physician. - The findings and recommendations were discussed with the patient's family. Sea Castillo MD Sea Castillo MD 04/27/2020 1:08:44 PM Electronically signed by Sea Castillo MD Number of Addenda: 0 Note Initiated On: 04/27/2020 12:35 PM Estimated Blood Loss: Estimated blood loss: none.
[2020-04-27 13:25] VITALS: BP 106/58
== END 2020-04-27 13:46 | disposition home or self-care (01) ==
LOC: M OPP 11:00
PROVIDERS: ATTEND Internal Medicine Gastroenterology
DX: D12.6 Benign neoplasm of colon, unspecified (principal); K57.30 Diverticulosis of large intestine without perforation or abscess without bleeding; K64.0 First degree hemorrhoids; Z86.010 Personal history of colon polyps; Z09 Encounter for follow-up examination after completed treatment for conditions other than malignant neoplasm; Z79.84 Long term (current) use of oral hypoglycemic drugs; Z79.899 Other long term (current) drug therapy; Z93.6 Other artificial openings of urinary tract status; Z85.51 Personal history of malignant neoplasm of bladder; Z87.891 Personal history of nicotine dependence; Z92.21 Personal history of antineoplastic chemotherapy

== ENCOUNTER → 2020-05-06 | Outpatient (REF) | payer BC, OTHER ==
[~2020-05-06] MED LIST changes: -NS 1,000 ML IV ONE
[2020-05-06 15:50] LABS: ALBUMIN 3.7 GM/DL (3.2-5.2); BILIRUBIN,DIRECT 0.2 MG/DL (0.0-0.2); BILIRUBIN,TOTAL 0.7 MG/DL (0.2-1.0); TOTAL PROTEIN 8.6 GM/DL (6.4-8.2)
[2020-05-08 10:59] LABS: CA19-9 TUMOR MARKER,CARBOHYDRA 13.2 U/ML (<35.0)
== END ==
LOC: M LAB REF 14:18
PROVIDERS: ATTEND Nurse Practitioner Family
DX: K86.2 Cyst of pancreas (principal)

== ENCOUNTER → 2020-05-26 | Outpatient (CLI) | payer BC, OTHER ==
--- NOTE | 2020-05-26 12:07 | REP ---
MRI PELVIS WITHOUT CONTRAST: HISTORY: History of bladder cancer renal failure. Surveillance for bladder malignancy. Comparison CT study of the abdomen pelvis is from October 02, 2019. TECHNIQUE: Sagittal, axial, and coronal imaging planes are utilized. T1- and T2-weighted scans are included with and without fat saturation. MRI FINDINGS: There are scattered normal-appearing inguinal lymph nodes bilaterally. There is an 8 mm lymph node in the right spermatic cord which was not previously apparent. This is not enlarged by MR criteria. There is no visible extrapelvic adenopathy. Urinary bladder is surgically absent. No intrapelvic adenopathy is appreciated. No free fluid is seen. Cortical and medullary bone signal intensity are normal. There are degenerative disc changes of the lumbosacral junction in the lower spine. IMPRESSION: No evidence of mass or adenopathy. Electronically Signed by Titi Romero MD 05/26/2020 01:10 P
== END ==
LOC: M RAD 09:49
PROVIDERS: ATTEND Internal Medicine Medical Oncology
DX: Z85.51 Personal history of malignant neoplasm of bladder (principal); N19 Unspecified kidney failure

== ENCOUNTER → 2020-08-28 | Outpatient (REF) | payer BC, OTHER | LOC: M SMT 17:14 | PROVIDERS: ATTEND Urology | DX: C67.9 Malignant neoplasm of bladder, unspecified (principal) ==

== ENCOUNTER → 2020-10-12 | Outpatient (CLI) | payer SELFPAY | LOC: M LABSMTC 11:50 | PROVIDERS: ATTEND Pediatrics | DX: Z20.828 Contact with and (suspected) exposure to other viral communicable diseases (principal) ==

== ENCOUNTER → 2020-12-14 | Outpatient (REF) | payer OTHER ==
[2020-12-14 12:31] LABS: HEMATOCRIT 34.3 % (42.0-52.0); HEMOGLOBIN 10.7 g/dl (13.5-17.5); MEAN CORPUSCULAR HEMOGLOBIN 28.3 pg (27.0-33.0); MEAN CORPUSCULAR HGB CONC 31.2 g/dl (32.0-36.5); MEAN CORPUSCULAR VOLUME 90.7 fl (80.0-96.0); RED BLOOD COUNT 3.78 10^6/uL (4.30-6.10)
[2020-12-14 13:01] LABS: PLATELET COUNT, AUTOMATED 96 10^3/uL (150-450)
[2020-12-14 16:13] LABS: ALT/SGPT 36 U/L (12-78); BLOOD UREA NITROGEN 28 MG/DL (7-18); CARBON DIOXIDE LEVEL 23 MEQ/L (21-32); CHLORIDE LEVEL 106 MEQ/L (98-107); CREATININE FOR GFR 1.93 MG/DL (0.70-1.30); GLOMERULAR FILTRATION RATE 37.6 (>49); GLUCOSE, FASTING 130 MG/DL (70-100); SODIUM LEVEL 139 MEQ/L (136-145)
[2020-12-14 16:14] LABS: ALBUMIN 3.6 GM/DL (3.2-5.2); BILIRUBIN,TOTAL 0.6 MG/DL (0.2-1.0); CHOLESTEROL LEVEL 129 MG/DL (<200); CHOLESTEROL RISK RATIO 3.146 (<5); HDL CHOLESTEROL 41 MG/DL (>40); LDL CHOLESTEROL 59 MG/DL (<100); NON-HDL-C 88 MG/DL; TOTAL PROTEIN 8.2 GM/DL (6.4-8.2); TRIGLYCERIDES LEVEL 144 MG/DL (<150)
[2020-12-14 16:38] LABS: FOLATE 16.2 NG/ML (>5.4); TOTAL 25(OH) VITAMIN D 18.6 NG/ML (30.0-100.0); VITAMIN B12 LEVEL > 2000 PG/ML (247-911)
[2020-12-14 19:11] LABS: HEMOGLOBIN A1c 7.1 %
== END ==
LOC: M LAB REF 09:54
PROVIDERS: ATTEND Registered Nurse
DX: E11.9 Type 2 diabetes mellitus without complications (principal); E78.5 Hyperlipidemia, unspecified; I10 Essential (primary) hypertension; D64.9 Anemia, unspecified

== ENCOUNTER → 2020-12-17 | Outpatient (CLI) | payer BC, OTHER ==
[~2020-12-17] MED LIST changes: +GASTROGRAFIN SOLUTION 30ML (Q9963) As Ordered ONE
--- NOTE | 2020-12-18 04:24 | REP ---
INDICATION: BLADDER CA COMPARISON: 10/02/2019 TECHNIQUE: Axial noncontrast images from the thoracic inlet to the upper abdomen with coronal and sagittal reformations. This CT examination was performed using the following dose reduction techniques: Automated exposure control, adjustment of mA and/or kv according to the patient's size, and use of iterative reconstruction technique. FINDINGS: The bilateral lung cruz are relatively well aerated. Small 2 mm noncalcified nodule again noted and unchanged. Relatively new linear fibroatelectatic changes in the bilateral lower lobes (left greater than right) are now identified with a small area of subpleural density in the deep posterior left sulcus which may represent associated chronic rounded atelectasis. No significant consolidation or suspicious nodule/mass. No effusion. No pneumothorax. Tracheobronchial tree is patent. Mediastinum demonstrates relatively normal/stable thoracic aorta, pulmonary vasculature, and heart/pericardium with moderate atherosclerotic changes to the coronary arteries again noted. No cardiomegaly or pericardial effusion. IMPRESSION: Minimal new linear fibroatelectatic changes primarily involving the left lower lobe with small underlying subpleural area of density in the deep left sulcus. Findings are nonspecific. Consider follow-up examination at 6-9 months given the patient's history of malignancy. <Electronically signed by Rajendra Fang > 12/18/20 0428
--- NOTE | 2020-12-18 04:37 | REP ---
INDICATION: BLADDER CA COMPARISON: 10/02/2019 TECHNIQUE: Axial noncontrast images from the lung bases to the pubic symphysis with coronal and sagittal reformations. This CT examination was performed using the following dose reduction techniques: Automated exposure control, adjustment of mA and/or kv according to the patient's size, and use of iterative reconstruction technique. FINDINGS: Ill-defined stranding in the right upper quadrant and peripancreatic region along with small peripancreatic and gisela hepatis lymph nodes currently measuring up to approximately 21 mm are identified. Small area of low density within the distal body of the pancreas and within the tail the pancreas are again identified and relatively similar in appearance. Liver and spleen are relatively stable with mild splenomegaly noted. Gallbladder, bilateral adrenal glands are normal. Kidneys demonstrate bilateral hydronephrosis to the level of the ileal conduit which itself appears relatively normal. 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 The enteric system is without obstruction or acute inflammatory process. Diverticulosis noted without acute diverticulitis. There appears to be mild generalized stranding and infiltration throughout the mesentery which is nonspecific but represents a relatively new finding. No ascites. No free air. Pelvis demonstrates prior bladder and prostate resection along with small fat containing inguinal hernias. Osseous structures demonstrate degenerative changes without focal abnormality. IMPRESSION: 1. Ill-defined stranding in the upper abdomen and peripancreatic region along with peripancreatic and gisela hepatis lymph nodes measuring up to 21 mm diameter. Generalized stranding through the mesentery is also identified. These findings are nonspecific although an acute abdominal process as well as malignancy/metastatic disease cannot be excluded. 2. 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 The ileal conduit itself and urostomy appear relatively normal. 3. Low-density areas within the pancreas are again noted and similar to prior examination. Given the above mentioned findings and low-density changes in the pancreas, contrast-enhanced MRI of the abdomen may be warranted for further investigation. 4. Overall CT evaluation is again somewhat limited due to the lack of contrast enhancement. 5. Further chronic changes as above. <Electronically signed by Rajendra Fang > 12/18/20 0432
== END ==
LOC: M RAD 15:19
PROVIDERS: ATTEND Internal Medicine Medical Oncology
DX: C67.9 Malignant neoplasm of bladder, unspecified (principal)
CPT/HCPCS: 71250; 74176; Q9963

== ENCOUNTER → 2021-01-15 | Outpatient (CLI) | payer BC, OTHER ==
[~2021-01-15] MED LIST changes: -GASTROGRAFIN SOLUTION 30ML (Q9963) As Ordered ONE
--- NOTE | 2021-01-15 13:05 | REP ---
INDICATION: PANCREATIC CYSTS. COMPARISON: MRI 12/13/2018, noncontrast CT 12/17/2020. In TECHNIQUE: Multiple sequences obtained in the axial coronal planes prior to and following the intravenous administration of 10 mL ProHance. FINDINGS: Thrombus is seen in the main portal vein extending into the right and left portal veins, with no internal flow seen on postcontrast images. Thrombus extends more distally in the right portal vein branches wall there is opacification of the left portal vein branches. There appears to be cavernous transformation of the main portal vein with small collateral vessels surrounding the thrombosed main portal vein. Splenic vein and superior mesenteric vein do not demonstrate definite thrombus. In the right lobe of the liver there is a vague area of T2 signal hyperintensity which is low in signal on T1 weighted images. This has ill-defined margins. The area measures about 4 cm in diameter. There is some mild apparent delayed internal enhancement on postcontrast images. I suspect this represents variation of the perfusion in this focal segment of the liver due to the extensive portal vein thrombosis which appears to be affecting the right lobe more so than the left. Spleen is markedly enlarged. The length of the spleen is approximately 20.3 cm. The adrenal glands are unremarkable. Cystic structures involving the pancreas are again noted. Body of the pancreas there is a 1 cm cyst with no internal enhancement, unchanged since the prior MRI. A lobulated cyst more distally in the body/tail of the pancreas measures about 2.1 cm in diameter and shows no internal enhancement, unchanged since the prior exam. In the lateral tail of the pancreas they mildly lobulated 1.5 cm cyst demonstrates no internal enhancement and is unchanged. A previously noted cystic structure just above the body of the pancreas has decreased in size and now measures about 1.6 cm, also with no enhancement. There is no pancreatic duct dilatation. Moderate bilateral hydroureteronephrosis is stable. Portal adenopathy is noted. The largest lymph node is in the posterior portal region at the level of the pancreatic head and measures approximately 2.5 cm in short axis. There is no free fluid. The gallbladder is grossly unremarkable. There is no evidence of biliary dilatation. IMPRESSION: Portal vein thrombosis appears somewhat chronic as there are portal collateral vessels and cavernous transformation. Thrombus extends into right portal vein branches more so than the left. Vague signal abnormality in the right lobe of the liver is likely due to focal variation in liver perfusion due to the portal vein thrombosis. On postcontrast images this area shows mild delayed enhancement. Recommend follow-up MR imaging to ensure that there is no underlying developing liver lesion. Marked splenomegaly. Portal adenopathy. Several cysts are again noted involving the pancreas which are stable. One cystic structure above the body of the pancreas has decreased in size. Recommend follow-up MRI of the pancreas in 1 year. <Electronically signed by Festus Zepeda > 01/15/21 [id number]
== END ==
LOC: M PLARAD 08:53
PROVIDERS: ATTEND Internal Medicine Medical Oncology
DX: I81 Portal vein thrombosis (principal); R93.2 Abnormal findings on diagnostic imaging of liver and biliary tract; R16.1 Splenomegaly, not elsewhere classified; K86.2 Cyst of pancreas; R39.15 Urgency of urination

== ENCOUNTER → 2021-03-10 | Outpatient (CLI) | payer BC, OTHER ==
[~2021-03-10] MED LIST changes: +COVI30VI IM; +ENOX150I3 SC; +ISOVUE-300 61% 50ML VIAL As Ordered ONE; +LIDOCAINE 1% MDV 20ML VIAL As Ordered ONE; +MIDAZOLAM INJ 2MG/2ML VIAL (J2250 PER 1MG) As Ordered ONE; +fentaNYL 100 MCG/2 ML INJECTION (J3010) As Ordered ONE
[2021-03-10 12:10] LABS: BASO % 0.5 % (0.0-1.0); EOS # 0.1 10^3/uL (0.0-0.5); EOS % 1.5 % (0.0-3.0); HEMATOCRIT 33.3 % (42.0-52.0); HEMOGLOBIN 10.2 g/dl (13.5-17.5); LYMPH # 0.9 10^3/uL (1.5-5.0); LYMPH % 22.4 % (24.0-44.0); MEAN CORPUSCULAR HEMOGLOBIN 27.1 pg (27.0-33.0); MEAN CORPUSCULAR HGB CONC 30.6 g/dl (32.0-36.5); MEAN CORPUSCULAR VOLUME 88.3 fl (80.0-96.0); MONO # 0.4 10^3/uL (0.0-0.8); MONO % 10.5 % (2.0-8.0); NEUTROPHILS # 2.7 10^3/uL (1.5-8.5); NEUTROPHILS % 64.6 % (36.0-66.0); RED BLOOD COUNT 3.77 10^6/uL (4.30-6.10); WHITE BLOOD COUNT 4.1 10^3/uL (4.0-10.0)
[2021-03-10 12:11] LABS: PLATELET COUNT, AUTOMATED 68 10^3/uL (150-450)
[2021-03-10 13:35] VITALS: BP 100/56
--- NOTE | 2021-03-10 16:20 | REP ---
INDICATION: PANCYTOPENIA. COMPARISON: None. TECHNIQUE: The procedure was performed under the direct supervision of Dr. Zepeda. The risks and benefits of the procedure were explained to the patient and informed consent was obtained. The left iliac bone was localized using CT guidance. The skin was prepped and draped in a sterile fashion. 1% lidocaine was used as a local anesthetic. Using CT guidance an 11 gauge bone biopsy needle system was inserted and 7 cc of marrow fluid was withdrawn. One core biopsied was then obtained. The patient tolerated the procedure well and there were no immediate complications. After the appropriate amount to monitor convalescence the patient was discharged from the department. FINDINGS: None IMPRESSION: CT-guided right iliac bone marrow biopsy. <Electronically signed by Nathan Hernandez > 03/10/21 1602 <Electronically signed by Festus Zepeda > 03/10/21 [id number]
== END ==
LOC: M IRPRO 10:22
PROVIDERS: ATTEND Internal Medicine Medical Oncology
DX: D61.818 Other pancytopenia (principal); C67.9 Malignant neoplasm of bladder, unspecified
CPT/HCPCS: 36415; 38222; 77012; 85025; 85049; 85055; 88300; 88305; 88311; 88313; J1644; J2250; J3010; Q9967

== ENCOUNTER → 2021-04-20 | Outpatient (CLI) | payer BC, OTHER ==
[~2021-04-20] MED LIST changes: -ISOVUE-300 61% 50ML VIAL As Ordered ONE; -LIDOCAINE 1% MDV 20ML VIAL As Ordered ONE; -MIDAZOLAM INJ 2MG/2ML VIAL (J2250 PER 1MG) As Ordered ONE; +PROHANCE 279.3MG/ML 15ML VIAL As Ordered ONE; -fentaNYL 100 MCG/2 ML INJECTION (J3010) As Ordered ONE
--- NOTE | 2021-04-20 16:17 | REP ---
INDICATION: SPLENOMEGALY. COMPARISON: 01/15/2021. TECHNIQUE: Multiple sequences obtained in the axial and coronal planes prior to and following the intravenous administration of 10 mL ProHance. FINDINGS: Thrombus is again seen in the main portal vein extending into the right and left portal veins, unchanged since the prior exam. There is cavernous transformation of the main portal vein with small collateral vessels opacifying with contrast in the gisela hepatis. The splenic vein and superior mesenteric vein are again patent. In the right lobe of the liver there is a bilobed fluid structure with thin rim enhancement. Maximum diameter is 3 cm. This appears to represent a developing cyst. Splenomegaly is again noted, the length of the spleen is approximately 21.5 cm, previously 20.3 cm. The adrenal glands are unremarkable. Small nonenhancing pancreatic cysts in the body and tail are stable. There is no pancreatic duct or significant biliary dilatation. Bilateral hydronephrosis is unchanged. Portal lymph nodes have decreased. There is no free fluid. IMPRESSION: No significant change in portal vein thrombosis and cavernous transformation of the main portal vein. Bilobed cystic structure in the liver, maximum diameter 3 cm. Mild increase in splenomegaly, the length of the spleen is 21.5 cm. Stable pancreatic cysts and bilateral hydronephrosis. <Electronically signed by Festus Zepeda > 04/20/21 1515
== END ==
LOC: M RAD 14:01
PROVIDERS: ATTEND Internal Medicine Medical Oncology
DX: R16.1 Splenomegaly, not elsewhere classified (principal)

== ENCOUNTER → 2021-06-30 | Outpatient (CLI) | payer BC, OTHER ==
[~2021-06-30] MED LIST changes: +OMEP40CA4 PO; -OMEP40CA97 PO; -PROHANCE 279.3MG/ML 15ML VIAL As Ordered ONE
[2021-06-30 10:49] LABS: INR 2.32; PROTHROMBIN TIME 25.9 SECONDS (12.7-14.5)
== END ==
LOC: M LAB 09:29
PROVIDERS: ATTEND Registered Nurse
DX: C67.9 Malignant neoplasm of bladder, unspecified (principal)

== ENCOUNTER → 2021-06-30 | Outpatient (CLI) | payer BC, OTHER ==
--- NOTE | 2021-06-30 12:18 | REP ---
INDICATION: PORTAL VEIN THROMBOSIS. COMPARISON: None. TECHNIQUE: Real-time sonographic evaluation of the liver with portal venous Doppler FINDINGS: The hepatic parenchymal echo pattern is increased and coarsened. In the right lobe of the liver there is evidence of a mixed echo potential mass measuring 3 x 4.4 x 2.7 cm and having indistinct margins. There is no evidence of intrahepatic ductal dilatation. The common bile duct measures 4 mm. The caldwell of the gallbladder are markedly thickened up to 1.1 cm. Two nearly anechoic structures are seen in the pancreas 1 in the body measuring 9 mm in the other in the tail region measuring 2 x 0.9 x 2.1 cm. There is no evidence of gross intrapancreatic ductal dilatation. The spleen measures 18.2 x 19.1 x 8 cm. The right kidney measures 12.3 x 6 x 2.1 cm. There is mild hydronephrosis. The left kidney measures 15.7 x 5.2 x 6.3 cm. There is no evidence of hydronephrosis. No gross free fluid is seen in the abdomen. Portal venous doppler: The diameter of the main portal vein is 21 mm. The main portal vein and all of its branches are occluded. The maximal velocity of the main hepatic artery is 86.9 centimeters/second with an RI 0.63. The main diameter of the inferior vena cava is 15.1 mm. IMPRESSION: 1. There is a lesion seen in the right lobe of the liver as described above. Exact etiology is uncertain. Liver abscess cannot be ruled out versus solid mass. 2. Markedly thickened gallbladder wall. 3. Pancreatic lesions as described above and for which pre and post gadolinium enhanced pancreatic MRI is recommended. It should be stated that on 04/20/2021 the patient had an abdominal MRI which showed pancreatic cystic lesions. This recommendation is for follow-up to ensure stability. 4. Mild right-sided hydronephrosis etiology uncertain. 5. Portal venous doppler findings as described above consistent with complete occlusion of the main portal vein along with both right and left portal veins and cavernous transformation. The right hepatic vein and hepatic artery are seen to be within normal limits. There is evidence of portalization of the main and left hepatic veins. <Electronically signed by Abner Tabor > 06/30/21 [id number]
== END ==
LOC: M RAD 09:27
PROVIDERS: ATTEND Surgery Vascular Surgery
DX: I81 Portal vein thrombosis (principal)

== ENCOUNTER → 2021-07-06 | Outpatient (REF) | payer BC, OTHER ==
[~2021-07-06] MED LIST changes: +SEMA14TA PO
== END ==
LOC: M LAB REF 17:19
PROVIDERS: ATTEND Internal Medicine Nephrology
DX: N18.32 Chronic kidney disease, stage 3b (principal)

== ENCOUNTER → 2021-07-07 | Outpatient (REF) | payer BC, OTHER ==
[2021-07-07 10:07] LABS: INR 2.33
== END ==
LOC: M LAB REF 09:00
PROVIDERS: ATTEND Registered Nurse
DX: C67.9 Malignant neoplasm of bladder, unspecified (principal)

== ENCOUNTER → 2021-07-14 | Outpatient (CLI) | payer BC, OTHER ==
[2021-07-14 10:27] LABS: INR 2.49; PROTHROMBIN TIME 27.3 SECONDS (12.7-14.5)
== END ==
LOC: M LAB 09:25
PROVIDERS: ATTEND Registered Nurse
DX: C67.9 Malignant neoplasm of bladder, unspecified (principal)

== ENCOUNTER → 2021-07-14 | Outpatient (CLI) | payer BC, OTHER ==
--- NOTE | 2021-07-14 09:53 | REP ---
INDICATION: BLADDER CA. COMPARISON: Comparison CT study December 17, 2020. TECHNIQUE: Helical scanning is acquired. 3 mm axial images are generated. Coronal and sagittal MPR and coronal MIP images are generated. FINDINGS: There is a left-sided [id number] catheter. No hilar or mediastinal mass or adenopathy is observed. No pleural or pericardial effusion is seen. There are stable nodular or vascular densities adjacent to the esophagus unchanged. There is a granulomatous calcification in the left lower lobe on page 49 of 116 series 204. No significant pulmonary nodule or pulmonary mass lesion is observed. There is another granulomatous calcification in the right upper lobe on page 39. there is a right middle lobe granulomatous calcification on page 57. No endobronchial abnormality is seen. No bony destructive lesion is appreciated. IMPRESSION: No new mass or adenopathy in the chest. Granulomatous calcifications. <Electronically signed by Navneet Romero > 07/14/21 [id number]
--- NOTE | 2021-07-14 10:05 | REP ---
INDICATION: BLADDER CA COMPARISON: Comparison is made with prior CT studies from December 17, 2020 and October 02, 2019. Comparison MRI study April 20, 2021.. TECHNIQUE: Helical scanning is acquired and 3 mm axial images were reformatted. Coronal and sagittal MPR images were generated and reviewed. No IV or oral contrast. FINDINGS: Preliminary digital radio aerial installer radiograph shows an unremarkable bowel gas pattern. Moderate splenic enlargement is again observed. The spleen measures 20.1 cm in greatest dimension. It is felt to be unchanged. The liver is not enlarged overall. However, there is a 3.7 by 3.6 cm ill-defined low-density lesion in the central aspect of the right lobe of the liver. This is felt to be suspicious for a metastatic lesion. It appears increased in size. There is a pattern of periportal edema and prominence of the portal vein unchanged. Previous MRI report describes cavernous transformation post portal vein thrombosis. Periportal densities may therefore be venous collaterals rather than periportal nodes. In any event, they are unchanged from comparison CT study of December 17, 2020. There is a low-density cystic area in the body of the pancreas measuring 1.8 cm in diameter which is unchanged from comparison CT studies and the comparison MR are. There is an accessory splenule in the left upper quadrant. No adrenal mass is seen. No retroperitoneal adenopathy is seen in the upper abdomen. There is bilateral hydronephrosis noted similar to the most recent is CT study of December 17, 2020. The patient is status post cystectomy and ileal loop urinary diversion. A small parastomal hernia transmits abdominal fat. There is left colonic diverticulosis. The prostate is not visible. No pelvic mass or adenopathy is seen. No bony destructive lesion is appreciated. IMPRESSION: There is a gradually enlarging central right hepatic lobe low-density lesions consistent with a metastatic lesion in the liver. Splenomegaly is again observed. Stable pancreatic cysts. Moderate but stable bilateral hydronephrosis post urinary diversion and cystectomy. <Electronically signed by Navneet Romeor > 07/14/21 1001
== END ==
LOC: M RAD 09:21
PROVIDERS: ATTEND Internal Medicine Medical Oncology
DX: C67.9 Malignant neoplasm of bladder, unspecified (principal)

== ENCOUNTER → 2021-08-09 | Outpatient (CLI) | payer BC, OTHER ==
--- NOTE | 2021-08-10 08:48 | REP ---
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 COMPARISON: There are no prior PET CTs for comparison. Previous CT scan chest abdomen and pelvis 07/14/2021 reviewed. Those examinations are noncontrast enhanced examinations. TECHNIQUE: After the intravenous administration of 9.06 mCi of FDG 18 triplane whole-body PET-CT was performed from the skull base to the mid thigh. FINDINGS: There are 2 significant foci of hypermetabolic activity in the liver. One is in the anterior segment of the right lobe of the liver and has a maximal SUV value of 6.72. The other is in the central liver at the level of the gisela hepatis and has a maximal SUV value of 13.61. Hypermetabolic activity is also seen along the course of the urinary diversion tract and consistent with urine. There is multifocal hypermetabolic activity seen in the spine and having a maximal SUV value of 3.65. No other areas of abnormal hypermetabolic activity are seen in the neck, chest, abdomen, or pelvis. IMPRESSION: 1. Hypermetabolic activity seen in the liver, as described above, and consistent with metastatic disease the primary of which cannot be determined. The central hypermetabolic activity with the highest SUV value is difficult to evaluate since the nondiagnostic CT component of today's PET-CT is without intravenous contrast and the prior abdomen and pelvis CT of 07/14/2021 was ordered without intravenous contrast. That activity might be secondary to lymphadenopathy extending from the gisela hepatis. 2. Hypermetabolic foci in the spine chemo reactive change versus metastatic disease. <Electronically signed by Abner Tabor > 08/10/21 [id number]
== END ==
LOC: M PLARAD 14:40
PROVIDERS: ATTEND Internal Medicine Medical Oncology
DX: C67.8 Malignant neoplasm of overlapping sites of bladder (principal)

== ENCOUNTER → 2021-08-17 | Outpatient (CLI) | payer BC, OTHER ==
[2021-08-17 09:40] LABS: BASO % 0.5 % (0.0-1.0); EOS # 0.1 10^3/uL (0.0-0.5); EOS % 1.3 % (0.0-3.0); HEMATOCRIT 39.6 % (42.0-52.0); HEMOGLOBIN 12.3 g/dl (13.5-17.5); LYMPH # 0.7 10^3/uL (1.5-5.0); LYMPH % 16.9 % (24.0-44.0); MEAN CORPUSCULAR HEMOGLOBIN 27.6 pg (27.0-33.0); MEAN CORPUSCULAR HGB CONC 31.1 g/dl (32.0-36.5); MONO # 0.3 10^3/uL (0.0-0.8); MONO % 8.6 % (2.0-8.0); NEUTROPHILS # 2.8 10^3/uL (1.5-8.5); NEUTROPHILS % 72.2 % (36.0-66.0); RED BLOOD COUNT 4.45 10^6/uL (4.30-6.10); WHITE BLOOD COUNT 3.8 10^3/uL (4.0-10.0)
[2021-08-17 10:04] LABS: PLATELET COUNT, AUTOMATED 67 10^3/uL (150-450)
[2021-08-17 10:44] LABS: CA19-9 TUMOR MARKER,CARBOHYDRA 8.7 U/ML (<35.0)
== END ==
LOC: M LAB 08:46
PROVIDERS: ATTEND Internal Medicine Medical Oncology
DX: C67.5 Malignant neoplasm of bladder neck (principal)

== ENCOUNTER → 2021-08-17 | Outpatient (CLI) | payer BC, OTHER ==
[2021-08-17 09:38] LABS: HEMATOCRIT 38.9 % (42.0-52.0); HEMOGLOBIN 12.2 g/dl (13.5-17.5); MEAN CORPUSCULAR HEMOGLOBIN 27.9 pg (27.0-33.0); MEAN CORPUSCULAR HGB CONC 31.4 g/dl (32.0-36.5); RED BLOOD COUNT 4.37 10^6/uL (4.30-6.10); WHITE BLOOD COUNT 3.9 10^3/uL (4.0-10.0)
[2021-08-17 09:40] LABS: PLATELET COUNT, AUTOMATED 64 10^3/uL (150-450)
[2021-08-17 10:12] LABS: BILIRUBIN,TOTAL 0.8 MG/DL (0.2-1.0); CALCIUM LEVEL 9.4 MG/DL (8.8-10.2); CREATININE FOR GFR 1.95 MG/DL (0.70-1.30); GLOMERULAR FILTRATION RATE 37.2 (>49); PERCENT SATURATION 19.7 % (19.7-50.0); POTASSIUM SERUM 4.2 MEQ/L (3.5-5.1); TOTAL PROTEIN 8.8 GM/DL (6.4-8.2)
== END ==
LOC: M LAB 08:41
PROVIDERS: ATTEND Internal Medicine Gastroenterology
DX: K86.2 Cyst of pancreas (principal); D50.9 Iron deficiency anemia, unspecified; I81 Portal vein thrombosis

== ENCOUNTER → 2021-08-17 | Outpatient (CLI) | payer BC, OTHER | LOC: M LAB 08:38 | PROVIDERS: ATTEND Urology | DX: C61 Malignant neoplasm of prostate (principal) ==

== ENCOUNTER → 2021-08-31 | Outpatient (REF) | payer BC, OTHER | LOC: M SMT 18:57 | PROVIDERS: ATTEND Urology | DX: C67.9 Malignant neoplasm of bladder, unspecified (principal) ==

== ENCOUNTER → 2022-03-18 | Outpatient (REF) | payer OTHER ==
[~2022-03-18] MED LIST changes: +JANT1TAB PO; +LEVO25TA5 PO; +NIRM1TAB PO; +PANT40TA29 PO; +REPA1TAB4 PO; -SEMA14TA PO; +SEMA14TA2 PO
[2022-03-18 10:38] LABS: CHOLESTEROL LEVEL 131 MG/DL (<200); CHOLESTEROL RISK RATIO 3.275 (<5); HDL CHOLESTEROL 40 MG/DL (>40); LDL CHOLESTEROL 52 MG/DL (<100); MAGNESIUM LEVEL 2.1 MG/DL (1.8-2.4); NON-HDL-C 91 MG/DL; PROSTATIC SPECIFIC AG MONITOR < 0.01 NG/ML (< 4.00); TRIGLYCERIDES LEVEL 197 MG/DL (<150)
== END ==
LOC: M LAB REF 08:56
PROVIDERS: ATTEND Registered Nurse
DX: K21.9 Gastro-esophageal reflux disease without esophagitis (principal); Z12.5 Encounter for screening for malignant neoplasm of prostate; E78.2 Mixed hyperlipidemia

== ENCOUNTER → 2022-03-18 | Outpatient (REF) | payer BC, OTHER ==
[2022-03-18 11:08] LABS: FREE T4 0.43 NG/DL (0.76-1.46); THYROID STIMULATING HORMONE 93.7 uIU/ML (0.358-3.740)
== END ==
LOC: M LAB REF 08:53
PROVIDERS: ATTEND Internal Medicine Endocrinology, Diabetes & Metabolism
DX: E05.00 Thyrotoxicosis with diffuse goiter without thyrotoxic crisis or storm (principal)

== ENCOUNTER → 2022-04-12 | Outpatient (CLI) | payer BC, OTHER ==
[~2022-04-12] MED LIST changes: +PROHANCE 279.3MG/ML 5ML VIAL As Ordered ONE
== END ==
LOC: M RAD 14:03
PROVIDERS: ATTEND Internal Medicine Medical Oncology
DX: C22.0 Liver cell carcinoma (principal)
CPT/HCPCS: 74183; A9576

== ENCOUNTER → 2022-06-10 | Outpatient (REF) | payer BC, OTHER ==
[~2022-06-10] MED LIST changes: +LEVO150T7 PO; +LEVO200C PO; -PROHANCE 279.3MG/ML 5ML VIAL As Ordered ONE
[2022-06-10 10:02] LABS: BASO % 0.8 % (0.0-1.0); EOS # 0.1 10^3/uL (0.0-0.5); HEMATOCRIT 36.3 % (42.0-52.0); HEMOGLOBIN 11.6 g/dl (13.5-17.5); LYMPH # 0.3 10^3/uL (1.5-5.0); LYMPH % 10.6 % (24.0-44.0); MONO # 0.3 10^3/uL (0.0-0.8); MONO % 10.2 % (2.0-8.0); NEUTROPHILS # 1.9 10^3/uL (1.5-8.5); RED BLOOD COUNT 3.63 10^6/uL (4.30-6.10); WHITE BLOOD COUNT 2.6 10^3/uL (4.0-10.0)
[2022-06-10 10:03] LABS: PLATELET COUNT, AUTOMATED 44 10^3/uL (150-450)
[2022-06-10 10:25] LABS: ERYTHROCYTE SEDIMENTATION RATE 49 mm/hr (0-20)
[2022-06-10 11:11] LABS: ALBUMIN 3.1 GM/DL (3.2-5.2); ALT/SGPT 49 U/L (12-78); BILIRUBIN,TOTAL 1.1 MG/DL (0.2-1.0); BLOOD UREA NITROGEN 22 MG/DL (7-18); C REACTIVE PROTEIN QUANTITATIV 2.31 MG/DL (0.00-0.30); CALCIUM LEVEL 8.6 MG/DL (8.8-10.2); CARBON DIOXIDE LEVEL 27 MEQ/L (21-32); CHLORIDE LEVEL 107 MEQ/L (98-107); CREATININE FOR GFR 1.83 MG/DL (0.70-1.30); GLOMERULAR FILTRATION RATE 39.9 (>49); GLUCOSE, FASTING 100 MG/DL (70-100); POTASSIUM SERUM 4.2 MEQ/L (3.5-5.1); RHEUMATOID FACTOR QUANT < 10.0 IU/ML (<15.0); SODIUM LEVEL 140 MEQ/L (136-145); TOTAL PROTEIN 7.2 GM/DL (6.4-8.2); URIC ACID 5.8 MG/DL (3.5-7.2)
== END ==
LOC: M LAB REF 09:24
PROVIDERS: ATTEND Orthopaedic Surgery
DX: M45.5 Ankylosing spondylitis of thoracolumbar region (principal)

== ENCOUNTER → 2022-07-21 | Outpatient (CLI) | payer BC, OTHER ==
[~2022-07-21] MED LIST changes: +CEPH500C
== END ==
LOC: M RAD 09:52
PROVIDERS: ATTEND Orthopaedic Surgery
DX: M45.5 Ankylosing spondylitis of thoracolumbar region (principal)

== ENCOUNTER → 2022-09-05 | Outpatient (REF) | payer BC, OTHER ==
[~2022-09-05] MED LIST changes: +LEVO1TAB40 PO
== END ==
LOC: M SMT 17:52
PROVIDERS: ATTEND Urology
DX: C67.9 Malignant neoplasm of bladder, unspecified (principal)

== ENCOUNTER → 2022-10-10 | Outpatient (REF) | payer MEDICARE, OTHER ==
[2022-10-10 19:04] LABS: TOTAL PROTEIN,RANDOM URINE 52.4 MG/DL (0.0-14.0)
[2022-10-10 19:09] LABS: CREATININE,RANDOM URINE 80.9 MG/DL
== END ==
LOC: M LAB REF 17:03
PROVIDERS: ATTEND Internal Medicine Nephrology
DX: N18.32 Chronic kidney disease, stage 3b (principal)

== ENCOUNTER → 2022-10-17 | Outpatient (CLI) | payer MEDICARE, OTHER ==
[~2022-10-17] MED LIST changes: +BACTDSTA; +ISOVUE-370 76% 100ML VIAL As Ordered ONE
== END ==
LOC: M RAD 10:47
PROVIDERS: ATTEND Urology
DX: L02.91 Cutaneous abscess, unspecified (principal)

== ENCOUNTER → 2022-11-30 | Outpatient (CLI) | payer MEDICARE, BC, OTHER ==
[~2022-11-30] MED LIST changes: +GASTROGRAFIN SOLUTION 30ML As Ordered ONE; -ISOVUE-370 76% 100ML VIAL As Ordered ONE
== END ==
LOC: M RAD 13:54
PROVIDERS: ATTEND Surgery
DX: K94.12 Enterostomy infection (principal); K76.82 Hepatic encephalopathy; K76.6 Portal hypertension; R16.1 Splenomegaly, not elsewhere classified
CPT/HCPCS: 74177; Q9963

== ENCOUNTER → 2023-01-04 | Outpatient (REF) | payer MEDICARE, OTHER ==
[~2023-01-04] MED LIST changes: -GASTROGRAFIN SOLUTION 30ML As Ordered ONE
[2023-01-04 18:17] LABS: TOTAL PROTEIN,RANDOM URINE 91.9 MG/DL (0.0-14.0)
== END ==
LOC: M LAB REF 17:27
PROVIDERS: ATTEND Internal Medicine Nephrology
DX: N18.32 Chronic kidney disease, stage 3b (principal)

== ENCOUNTER → 2023-02-17 | Outpatient (REF) | payer MEDICARE, BC, OTHER ==
[2023-02-17 17:55] LABS: CHOLESTEROL RISK RATIO 2.67 (<5); HDL CHOLESTEROL 37.8 MG/DL (>40); NON-HDL-C 63.2 MG/DL
== END ==
LOC: M LAB REF 09:06
PROVIDERS: ATTEND Registered Nurse
DX: E78.2 Mixed hyperlipidemia (principal)

== ENCOUNTER 2023-02-22 10:41 | Emergency (ER) | payer MEDICARE, BC, OTHER ==
[~2023-02-22] VITALS: Ht 180.3 cm; Wt 119.0 kg
[2023-02-22 10:42] VITALS: BP 109/52
[2023-02-22] MEDS ORDERED: SYNT125T PO (10:49)
[2023-02-22 12:24] LABS: BASO % 0.5 % (0.0-1.0); HEMATOCRIT 31.8 % (42.0-52.0); HEMOGLOBIN 9.8 g/dl (13.5-17.5); LYMPH # 0.4 10^3/uL (1.5-5.0); LYMPH % 9.1 % (24.0-44.0); MEAN CORPUSCULAR HEMOGLOBIN 29.7 pg (27.0-33.0); MEAN CORPUSCULAR HGB CONC 30.8 g/dl (32.0-36.5); MEAN CORPUSCULAR VOLUME 96.4 fl (80.0-96.0); MONO # 0.3 10^3/uL (0.0-0.8); MONO % 6.9 % (2.0-8.0); NEUTROPHILS # 3.3 10^3/uL (1.5-8.5); NEUTROPHILS % 81.8 % (36.0-66.0); WHITE BLOOD COUNT 4.1 10^3/uL (4.0-10.0)
[2023-02-22 12:26] LABS: PLATELET COUNT, AUTOMATED 69 10^3/uL (150-450)
[2023-02-22] MEDS ORDERED: PIPERACILLIN/TAZOBACTAM SOD 4.5 GM in D5W MINI-BAG PLUS 50 ML IV ONE (12:30)
[2023-02-22 12:48] LABS: ALBUMIN 2.9 G/DL (3.2-5.2); BILIRUBIN,DIRECT 0.6 MG/DL (<0.4); BILIRUBIN,TOTAL 1.1 MG/DL (0.3-1.2); CALCIUM LEVEL 8.3 MG/DL (8.3-10.6); CREATININE FOR GFR 1.91 MG/DL (0.70-1.30); GLOMERULAR FILTRATION RATE 37.8 (>49); TOTAL PROTEIN 7.7 G/DL (5.7-8.2)
[2023-02-22] MEDS: GASTROGRAFIN SOLUTION 30ML PO SCH ×2 (12:51→13:23)
[2023-02-22] MEDS ORDERED: ISOVUE-370 76% 100ML VIAL As Ordered ONE (14:25)
[2023-02-22 14:48] LABS: RSV AMPLIFICATION NEGATIVE (NEGATIVE)
[2023-02-22] MEDS ORDERED: REPA1TAB6 PO (16:28)
[2023-02-22] MEDS ORDERED: ZOLO100T PO (16:28)
[2023-02-22] MEDS ORDERED: PRAV80TA2 PO (16:28)
[2023-02-22] MEDS ORDERED: REPA1TAB4 PO ×2 (16:29)
[2023-02-22] MEDS ORDERED: HOME MED LIST COMPLETE! XX SCH (16:30)
[2023-02-22] MEDS ORDERED: DALBAVANCIN 1,500 MG in D5W 250 ML IV ONE (17:40)
== END 2023-02-22 19:45 | disposition home or self-care (01) ==
LOC: M ED 10:41
DX: L03.311 Cellulitis of abdominal wall (principal); K31.6 Fistula of stomach and duodenum; E11.9 Type 2 diabetes mellitus without complications; I10 Essential (primary) hypertension; D64.9 Anemia, unspecified; F41.9 Anxiety disorder, unspecified; K21.9 Gastro-esophageal reflux disease without esophagitis; E78.5 Hyperlipidemia, unspecified; Z87.81 Personal history of (healed) traumatic fracture; Z85.46 Personal history of malignant neoplasm of prostate; Z85.51 Personal history of malignant neoplasm of bladder; Z85.05 Personal history of malignant neoplasm of liver; Z88.8 Allergy status to other drugs, medicaments and biological substances; Z79.899 Other long term (current) drug therapy
CPT/HCPCS: 74176; 80053; 82248; 83690; 85025; 85049; 85055; 87040; 87631; 96365; 96367; 99284; G0463; J0875; J2543; Q9963

== ENCOUNTER → 2023-04-10 | Outpatient (REF) | payer MEDICARE, BC, OTHER ==
[~2023-04-10] MED LIST changes: +PRAV80TA2 PO; +SYNT125T PO; +ZOLO100T PO
[2023-04-10 19:09] LABS: CREATININE,RANDOM URINE 80.6 MG/DL
[2023-04-10 19:11] LABS: TOTAL PROTEIN,RANDOM URINE 153.3 MG/DL (0.0-14.0)
== END ==
LOC: M LAB REF 17:19
PROVIDERS: ATTEND Internal Medicine Nephrology
DX: N18.32 Chronic kidney disease, stage 3b (principal)

== ENCOUNTER 2023-05-03 18:07 | Emergency (ER) | payer MEDICARE, BC, OTHER ==
[~2023-05-03] VITALS: Ht 180.3 cm; Wt 101.4 kg
[~2023-05-03 18:07] MED LIST changes: +FERR325T3 PO
[2023-05-03 18:08] VITALS: TEMP 97.5
[2023-05-03 19:53] LABS: BASO # 0.1 10^3/uL (0.0-0.2); EOS # 0.2 10^3/uL (0.0-0.5); EOS % 3.5 % (0.0-3.0); HEMATOCRIT 25.5 % (42.0-52.0); LYMPH # 0.6 10^3/uL (1.5-5.0); MEAN CORPUSCULAR HEMOGLOBIN 28.8 pg (27.0-33.0); MEAN CORPUSCULAR HGB CONC 31.4 g/dl (32.0-36.5); MEAN CORPUSCULAR VOLUME 91.7 fl (80.0-96.0); MONO # 0.4 10^3/uL (0.0-0.8); NEUTROPHILS # 3.9 10^3/uL (1.5-8.5); NEUTROPHILS % 76.1 % (36.0-66.0); PLATELET COUNT, AUTOMATED 110 10^3/uL (150-450); RED BLOOD COUNT 2.78 10^6/uL (4.30-6.10); WHITE BLOOD COUNT 5.1 10^3/uL (4.0-10.0)
[2023-05-03 20:17] LABS: ALBUMIN 2.4 G/DL (3.2-5.2); BILIRUBIN,TOTAL 0.4 MG/DL (0.3-1.2); CALCIUM LEVEL 7.8 MG/DL (8.3-10.6); CREATININE FOR GFR 1.3 MG/DL (0.70-1.30); POTASSIUM SERUM 3.3 MMOL/L (3.5-5.1); TOTAL PROTEIN 5.9 G/DL (5.7-8.2)
[2023-05-03] MEDS ORDERED: OXYC1TAB23 PO (20:21)
[2023-05-03] MEDS ORDERED: ROBA1000 IM (20:22)
[2023-05-03] MEDS ORDERED: VITMTA PO (20:23)
[2023-05-03] MEDS ORDERED: POTASSIUM CHLORIDE 10MEQ SR TABLET PO ONE (20:30)
[2023-05-03] MEDS ORDERED: ISOVUE-370 76% 100ML VIAL As Ordered ONE (20:30)
[2023-05-03] MEDS ORDERED: NS 1,000 ML IV ONE (20:30)
[2023-05-03] MEDS ORDERED: oxyCODONE 5MG TAB PO ONE (21:00)
[2023-05-03 21:14] LABS: CREATININE BF 1.4 MG/DL (NOT ESTABLISHED); SOURCE, BODY FLUID CREATININE PERITONEAL
[2023-05-03 22:15] VITALS: BP 101/58
[2023-05-03 22:22] VITALS: O2SAT 98
[2023-05-03] MEDS ORDERED: DIFL200T PO (23:00)
[2023-05-03] MEDS ORDERED: FLUCONAZOLE 100 MG TAB PO ONE (23:00)
[2023-05-06] MEDS ORDERED: LEVO1TAB40 PO (09:33)
== END 2023-05-03 23:38 | disposition home or self-care (01) ==
LOC: M ED 18:07
DX: B37.41 Candidal cystitis and urethritis (principal); E11.9 Type 2 diabetes mellitus without complications; Z79.899 Other long term (current) drug therapy
CPT/HCPCS: 36415; 74177; 80053; 81001; 82570; 85025; 87040; 87088; 87186; 99285; Q9967

== ENCOUNTER 2023-06-03 21:23 | Emergency (ER) | payer MEDICARE, BC, OTHER ==
[~2023-06-03] VITALS: Ht 175.3 cm; Wt 100.0 kg
[~2023-06-03 21:23] MED LIST changes: +DIFL200T PO; +OXYC1TAB23 PO; +ROBA1000 IM; +VITMTA PO
[2023-06-03 21:57] LABS: BASO % 0.4 % (0.0-1.0); EOS # 0.1 10^3/uL (0.0-0.5); EOS % 3.7 % (0.0-3.0); HEMATOCRIT 26.7 % (42.0-52.0); LYMPH # 0.4 10^3/uL (1.5-5.0); LYMPH % 16.1 % (24.0-44.0); MEAN CORPUSCULAR HEMOGLOBIN 27.3 pg (27.0-33.0); MEAN CORPUSCULAR VOLUME 91.1 fl (80.0-96.0); MONO # 0.3 10^3/uL (0.0-0.8); MONO % 10.7 % (2.0-8.0); NEUTROPHILS # 1.7 10^3/uL (1.5-8.5); NEUTROPHILS % 69.1 % (36.0-66.0); RED BLOOD COUNT 2.93 10^6/uL (4.30-6.10); WHITE BLOOD COUNT 2.4 10^3/uL (4.0-10.0)
[2023-06-03 22:04] LABS: PLATELET COUNT, AUTOMATED 63 10^3/uL (150-450)
[2023-06-03 22:12] LABS: INR 1.27; PROTHROMBIN TIME 16.2 SECONDS (12.5-14.5)
[2023-06-03 22:28] LABS: ALBUMIN 3.1 G/DL (3.2-5.2); BILIRUBIN,DIRECT 0.3 MG/DL (<0.4); BILIRUBIN,TOTAL 0.6 MG/DL (0.3-1.2); CALCIUM LEVEL 8.2 MG/DL (8.3-10.6); CK-MB VALUE MASS 1.4 NG/ML (<3.6); CREATININE FOR GFR 1.62 MG/DL (0.70-1.30); GLOMERULAR FILTRATION RATE 45.8 (>49); MB/CK RELATIVE INDEX 2.5 (< OR =4); POTASSIUM SERUM 3.6 MMOL/L (3.5-5.1); TOTAL PROTEIN 6.9 G/DL (5.7-8.2)
[2023-06-04] MEDS ORDERED: NS 1,000 ML IV ONE
[2023-06-04 01:30] VITALS: BP 141/71; TEMP 97.8; O2SAT 94
[2023-06-04] MEDS ORDERED: LACTULOSE 20GM/30ML SYRUP UDC PO ONE (03:15)
[2023-06-04] MEDS ORDERED: LACT20EL PO (03:23)
== END 2023-06-04 04:12 | disposition home or self-care (01) ==
LOC: M ED 21:23
DX: E72.20 Disorder of urea cycle metabolism, unspecified (principal); E11.9 Type 2 diabetes mellitus without complications; E78.5 Hyperlipidemia, unspecified; Z85.46 Personal history of malignant neoplasm of prostate; Z85.49 Personal history of malignant neoplasm of other male genital organs

== ENCOUNTER → 2023-06-07 | Outpatient (CLI) | payer MEDICARE, BC, OTHER ==
[~2023-06-07] MED LIST changes: +LACT20EL PO
[2023-06-07 15:55] LABS: CALCIUM LEVEL 8.9 MG/DL (8.3-10.6); CREATININE FOR GFR 1.68 MG/DL (0.70-1.30); GLOMERULAR FILTRATION RATE 43.9 (>49); POTASSIUM SERUM 3.8 MMOL/L (3.5-5.1)
== END ==
LOC: M LAB 14:46
DX: Z08 Encounter for follow-up examination after completed treatment for malignant neoplasm (principal); Z85.51 Personal history of malignant neoplasm of bladder

== ENCOUNTER → 2023-06-21 | Outpatient (CLI) | payer MEDICARE, BC, OTHER | LOC: M RAD 09:14 | DX: Q63.8 Other specified congenital malformations of kidney (principal); Z85.51 Personal history of malignant neoplasm of bladder; N13.4 Hydroureter; K80.00 Calculus of gallbladder with acute cholecystitis without obstruction; R93.41 Abnormal radiologic findings on diagnostic imaging of renal pelvis, ureter, or bladder ==

== ENCOUNTER → 2023-09-26 | Outpatient (CLI) | payer MEDICARE, BC, OTHER ==
[2023-09-26 11:35] LABS: CALCIUM LEVEL 8.9 MG/DL (8.3-10.6); CREATININE FOR GFR 1.73 MG/DL (0.70-1.30); GLOMERULAR FILTRATION RATE 42.4 (>49); POTASSIUM SERUM 4.6 MMOL/L (3.5-5.1)
== END ==
LOC: M RAD 10:00
DX: K43.5 Parastomal hernia without obstruction or gangrene (principal); N36.0 Urethral fistula; Z85.51 Personal history of malignant neoplasm of bladder

== ENCOUNTER → 2023-11-03 | Outpatient (CLI) | payer MEDICARE, BC, OTHER ==
[~2023-11-03] MED LIST changes: +LEVO175T2; +LEVO1TAB39 PO
== END ==
LOC: M RAD 14:53
PROVIDERS: ATTEND Registered Nurse
DX: J06.9 Acute upper respiratory infection, unspecified (principal)

== ENCOUNTER 2024-02-11 09:00 | Inpatient (IN) | payer MEDICARE, BC, OTHER ==
[~2024-02-11] VITALS: Ht 180.3 cm; Wt 104.9 kg
[2024-02-11] VITALS (16 sets, daily range): BP systolic 92–106; BP diastolic 50–57; TEMP 96.8–100.1; O2SAT 97–100
[~2024-02-11 09:00] MED LIST changes: +THERTAB21 PO; +TIRZ5PEN IM
[2024-02-11] MEDS: NS 3,130 ML in IV 1 EA IV ONE (09:35)
[2024-02-11 09:51] LABS: BASO # 0.1 10^3/uL (0.0-0.2); BASO % 0.6 % (0.0-1.0); EOS # 0.2 10^3/uL (0.0-0.5); EOS % 1.6 % (0.0-3.0); HEMATOCRIT 21.9 % (42.0-52.0); LYMPH # 1.3 10^3/uL (1.5-5.0); LYMPH % 10.6 % (24.0-44.0); MEAN CORPUSCULAR HEMOGLOBIN 32.4 pg (27.0-33.0); MEAN CORPUSCULAR HGB CONC 31.5 g/dl (32.0-36.5); MEAN CORPUSCULAR VOLUME 102.8 fl (80.0-96.0); MONO # 0.8 10^3/uL (0.0-0.8); MONO % 6.1 % (2.0-8.0); NEUTROPHILS % 80.6 % (36.0-66.0); PLATELET COUNT, AUTOMATED 151 10^3/uL (150-450); RED BLOOD COUNT 2.13 10^6/uL (4.30-6.10); WHITE BLOOD COUNT 12.4 10^3/uL (4.0-10.0)
[2024-02-11 09:55] LABS: HEMOGLOBIN 6.9 g/dl (13.5-17.5)
[2024-02-11 10:03] LABS: INR 1.43; PARTIAL THROMBOPLASTIN TIME 34.7 SECONDS (24.8-34.2); PROTHROMBIN TIME 16.9 SECONDS (12.5-14.5)
[2024-02-11 10:04] LABS: PROCALCITONIN 0.39 ng/ml
[2024-02-11 10:10] LABS: C REACTIVE PROTEIN QUANTITATIV 1.7 MG/DL (<1.0)
[2024-02-11 10:12] LABS: ALBUMIN 2.9 G/DL (3.2-5.2); BILIRUBIN,DIRECT 0.2 MG/DL (<0.4); BILIRUBIN,TOTAL 0.6 MG/DL (0.3-1.2); CALCIUM LEVEL 8.4 MG/DL (8.3-10.6); CREATININE FOR GFR 2.59 MG/DL (0.70-1.30); GLOMERULAR FILTRATION RATE 26.5 (>49); POTASSIUM SERUM 4.7 MMOL/L (3.5-5.1); TOTAL PROTEIN 5.8 G/DL (5.7-8.2)
[2024-02-11] MEDS: cefTRIAXone SOD 2 GM in D5W MINI-BAG PLUS 50 ML IV ONE (10:17)
[2024-02-11] MEDS ORDERED: LACT20EL PO (10:36)
[2024-02-11] MEDS ORDERED: MULT-40 PO (10:36)
[2024-02-11] MEDS ORDERED: ACET1TAB55 PO (10:36)
[2024-02-11] MEDS ORDERED: LEVO200T4 PO (10:36)
[2024-02-11] MEDS ORDERED: FERR325T3 PO (10:36)
[2024-02-11] MEDS ORDERED: HOME MED LIST COMPLETE! XX SCH (10:40)
[2024-02-11] MEDS ORDERED: SILVER NITRATE APPLICATOR (1 = QTY 10) TOP ONE (12:15)
[2024-02-11] MEDS: SILVER NITRATE APPLICATOR (1 = QTY 10) TOP ONE (12:20)
[2024-02-11] MEDS ORDERED: GLUCOSE 4GM CHEW TABLET PO PRN (13:10)
[2024-02-11] MEDS ORDERED: GLUCAGON INJ 1MG VIAL SC PRN (13:10)
[2024-02-11] MEDS ORDERED: DEXTROSE 50% 50ML SYRINGE IV PRN (13:10)
[2024-02-11 15:00] LABS: ALBUMIN 2.4 G/DL (3.2-5.2); BILIRUBIN,TOTAL 0.5 MG/DL (0.3-1.2); CALCIUM LEVEL 7.3 MG/DL (8.3-10.6); CREATININE FOR GFR 2.39 MG/DL (0.70-1.30); GLOMERULAR FILTRATION RATE 29.1 (>49); POTASSIUM SERUM 5.1 MMOL/L (3.5-5.1); TOTAL PROTEIN 5.2 G/DL (5.7-8.2)
[2024-02-11] MEDS: NS 1,000 ML IV SCH (17:54)
[2024-02-11] MEDS: INSULIN LISPRO (NovoLOG) PER UNIT SC SCH ×2 (18:16→20:45)
[2024-02-11 19:46] LABS: HEMATOCRIT 21.1 % (42.0-52.0); MEAN CORPUSCULAR HEMOGLOBIN 31.9 pg (27.0-33.0); MEAN CORPUSCULAR HGB CONC 32.2 g/dl (32.0-36.5); MEAN CORPUSCULAR VOLUME 99.1 fl (80.0-96.0); RED BLOOD COUNT 2.13 10^6/uL (4.30-6.10); WHITE BLOOD COUNT 5.5 10^3/uL (4.0-10.0)
[2024-02-11 19:51] LABS: HEMOGLOBIN 6.8 g/dl (13.5-17.5); PLATELET COUNT, AUTOMATED 58 10^3/uL (150-450)
[2024-02-11 20:24] LABS: MEAN CORPUSCULAR HEMOGLOBIN 31.6 pg (27.0-33.0); MEAN CORPUSCULAR HGB CONC 31.6 g/dl (32.0-36.5); RED BLOOD COUNT 2.06 10^6/uL (4.30-6.10); WHITE BLOOD COUNT 5.7 10^3/uL (4.0-10.0)
[2024-02-11 20:29] LABS: HEMATOCRIT 20.6 % (42.0-52.0); HEMOGLOBIN 6.5 g/dl (13.5-17.5); PLATELET COUNT, AUTOMATED 62 10^3/uL (150-450)
[2024-02-12] VITALS (12 sets, daily range): BP systolic 94–122; BP diastolic 48–60; TEMP 96.4–99.5; O2SAT 97–100
[2024-02-12] MEDS: FUROSEMIDE 20MG/2ML VIAL IV ONE (00:44)
[2024-02-12 02:03] LABS: HEMATOCRIT 22.5 % (42.0-52.0); HEMOGLOBIN 7.3 g/dl (13.5-17.5); MEAN CORPUSCULAR HEMOGLOBIN 30.9 pg (27.0-33.0); MEAN CORPUSCULAR HGB CONC 32.4 g/dl (32.0-36.5); MEAN CORPUSCULAR VOLUME 95.3 fl (80.0-96.0); RED BLOOD COUNT 2.36 10^6/uL (4.30-6.10); WHITE BLOOD COUNT 5.2 10^3/uL (4.0-10.0)
[2024-02-12 02:12] LABS: PLATELET COUNT, AUTOMATED 55 10^3/uL (150-450)
[2024-02-12 03:32] LABS: HEMOGLOBIN 7.4 g/dl (13.5-17.5); MEAN CORPUSCULAR HEMOGLOBIN 31.1 pg (27.0-33.0); MEAN CORPUSCULAR HGB CONC 32.2 g/dl (32.0-36.5); MEAN CORPUSCULAR VOLUME 96.6 fl (80.0-96.0); RED BLOOD COUNT 2.38 10^6/uL (4.30-6.10); WHITE BLOOD COUNT 4.8 10^3/uL (4.0-10.0)
[2024-02-12 03:35] LABS: PLATELET COUNT, AUTOMATED 56 10^3/uL (150-450)
[2024-02-12 03:44] LABS: INR 1.47; PARTIAL THROMBOPLASTIN TIME 34.3 SECONDS (24.8-34.2); PROTHROMBIN TIME 17.4 SECONDS (12.5-14.5)
[2024-02-12 04:05] LABS: ALBUMIN 2.5 G/DL (3.2-5.2); CALCIUM LEVEL 7.6 MG/DL (8.3-10.6); CREATININE FOR GFR 2.31 MG/DL (0.70-1.30); GLOMERULAR FILTRATION RATE 30.3 (>49); POTASSIUM SERUM 3.9 MMOL/L (3.5-5.1); TOTAL PROTEIN 5.2 G/DL (5.7-8.2)
[2024-02-12] MEDS: LEVOTHYROXINE 100MCG TABLET (0.1MG) PO SCH (05:21)
[2024-02-12] MEDS: SERTRALINE 100 MG TAB PO SCH (08:30)
[2024-02-12] MEDS: FERROUS SULFATE 325MG TAB PO SCH (08:30)
[2024-02-12] MEDS: MULTIVITAMINS/MINERALS THERAP 1 TAB PO SCH (08:31)
[2024-02-12] MEDS: PANTOPRAZOLE 40MG TAB (PROTONIX) PO SCH (08:31)
[2024-02-12] MEDS: FOLIC ACID 1MG TAB PO SCH (08:31)
[2024-02-12] MEDS: PRAVASTATIN 20 MG TAB PO SCH (08:31)
[2024-02-12 08:50] LABS: HEMATOCRIT 22.9 % (42.0-52.0); HEMOGLOBIN 7.4 g/dl (13.5-17.5); MEAN CORPUSCULAR HEMOGLOBIN 31.5 pg (27.0-33.0); MEAN CORPUSCULAR HGB CONC 32.3 g/dl (32.0-36.5); MEAN CORPUSCULAR VOLUME 97.4 fl (80.0-96.0); RED BLOOD COUNT 2.35 10^6/uL (4.30-6.10); WHITE BLOOD COUNT 3.7 10^3/uL (4.0-10.0)
[2024-02-12 08:53] LABS: PLATELET COUNT, AUTOMATED 50 10^3/uL (150-450)
[2024-02-12] MEDS: cefTRIAXone SOD 1 GM in D5W MINI-BAG PLUS 50 ML IV SCH (09:27)
[2024-02-12] MEDS ORDERED: HOME MED LIST COMPLETE! XX SCH (10:50)
[2024-02-12] MEDS: LACTULOSE 20GM/30ML SYRUP UDC PO PRN (11:26)
[2024-02-12 15:47] LABS: HEMOGLOBIN 8.1 g/dl (13.5-17.5); MEAN CORPUSCULAR HEMOGLOBIN 31.4 pg (27.0-33.0); MEAN CORPUSCULAR HGB CONC 32.4 g/dl (32.0-36.5); MEAN CORPUSCULAR VOLUME 96.9 fl (80.0-96.0); RED BLOOD COUNT 2.58 10^6/uL (4.30-6.10); WHITE BLOOD COUNT 3.2 10^3/uL (4.0-10.0)
[2024-02-12 15:53] LABS: PLATELET COUNT, AUTOMATED 49 10^3/uL (150-450)
[2024-02-13] VITALS (10 sets, daily range): BP systolic 90–116; BP diastolic 48–58; TEMP 97.3–99.3; O2SAT 96–100
[2024-02-13 04:12] LABS: HEMATOCRIT 24.1 % (42.0-52.0); HEMOGLOBIN 7.8 g/dl (13.5-17.5); MEAN CORPUSCULAR HEMOGLOBIN 31.6 pg (27.0-33.0); MEAN CORPUSCULAR HGB CONC 32.4 g/dl (32.0-36.5); MEAN CORPUSCULAR VOLUME 97.6 fl (80.0-96.0); RED BLOOD COUNT 2.47 10^6/uL (4.30-6.10); WHITE BLOOD COUNT 3.1 10^3/uL (4.0-10.0)
[2024-02-13 04:13] LABS: PLATELET COUNT, AUTOMATED 49 10^3/uL (150-450)
[2024-02-13 04:46] LABS: ALBUMIN 2.5 G/DL (3.2-5.2); BILIRUBIN,TOTAL 0.5 MG/DL (0.3-1.2); CALCIUM LEVEL 7.4 MG/DL (8.3-10.6); CREATININE FOR GFR 2.23 MG/DL (0.70-1.30); GLOMERULAR FILTRATION RATE 31.5 (>49); POTASSIUM SERUM 3.7 MMOL/L (3.5-5.1); TOTAL PROTEIN 5.3 G/DL (5.7-8.2)
[2024-02-13 07:16] LABS: HEMATOCRIT 23.1 % (42.0-52.0); HEMOGLOBIN 7.5 g/dl (13.5-17.5); MEAN CORPUSCULAR HEMOGLOBIN 31.8 pg (27.0-33.0); MEAN CORPUSCULAR HGB CONC 32.5 g/dl (32.0-36.5); MEAN CORPUSCULAR VOLUME 97.9 fl (80.0-96.0); RED BLOOD COUNT 2.36 10^6/uL (4.30-6.10); WHITE BLOOD COUNT 2.9 10^3/uL (4.0-10.0)
[2024-02-13 07:24] LABS: PLATELET COUNT, AUTOMATED 47 10^3/uL (150-450)
[2024-02-13 07:43] LABS: ATYPICAL LYMPH 1 % (0-5); BASOPHILS 2 % (0-1); EOSINOPHILS 6 % (0-3); LYMPHOCYTES 25 % (16-44); MONOCYTES 15 % (0-5); NEUTROPHILS 51 % (28-66)
[2024-02-13 07:44] LABS: ANISOCYTOSIS 2+; OVALOCYTES 1+; PLATELET ESTIMATE MARKED DECREASE (NORMAL); POIKILOCYTOSIS 1+; POLYCHROMASIA 1+
[2024-02-13 12:16] LABS: HEMATOCRIT 23.3 % (42.0-52.0); HEMOGLOBIN 7.7 g/dl (13.5-17.5)
[2024-02-13] MEDS: FLUCONAZOLE 100 MG TAB PO SCH (21:25)
[2024-02-14 03:50] VITALS: BP 92/58; TEMP 98.1; O2SAT 98
[2024-02-14 05:09] LABS: HEMATOCRIT 23.5 % (42.0-52.0); HEMOGLOBIN 7.7 g/dl (13.5-17.5); MEAN CORPUSCULAR HEMOGLOBIN 31.7 pg (27.0-33.0); MEAN CORPUSCULAR HGB CONC 32.8 g/dl (32.0-36.5); MEAN CORPUSCULAR VOLUME 96.7 fl (80.0-96.0); RED BLOOD COUNT 2.43 10^6/uL (4.30-6.10); WHITE BLOOD COUNT 2.5 10^3/uL (4.0-10.0)
[2024-02-14 05:13] LABS: PLATELET COUNT, AUTOMATED 45 10^3/uL (150-450)
[2024-02-14 05:44] LABS: CALCIUM LEVEL 7.4 MG/DL (8.3-10.6); CREATININE FOR GFR 2.1 MG/DL (0.70-1.30); GLOMERULAR FILTRATION RATE 33.8 (>49); MAGNESIUM LEVEL 1.8 MG/DL (1.8-2.4); POTASSIUM SERUM 3.8 MMOL/L (3.5-5.1)
[2024-02-14 07:38] VITALS: BP 106/55; TEMP 97.8; O2SAT 96
[2024-02-14 12:00] VITALS: BP 93/50; TEMP 97.1; O2SAT 100
[2024-02-14] MEDS: FILGRASTIM 480 MCG/0.8 ML SYRINGE **SC ADMINISTRATION ONLY SC SCH (12:15)
[2024-02-14] MEDS ORDERED: FLUC100T3 PO (12:53)
[2024-02-14] MEDS: SODIUM CHLORIDE 0.9% INJ 10 ML SYR IV PRN (14:46)
== END 2024-02-14 15:18 | disposition home or self-care (01) | DRG 871 ==
LOC: M ED 09:57 → M ED INP 13:08 → M PCU 16:41
PROVIDERS: ADMIT Internal Medicine; ATTEND Internal Medicine
PROC: 30233N1 Transfusion of Nonautologous Red Blood Cells into Peripheral Vein, Percutaneous Approach (ICD-10-PCS; principal; 2024-02-11)
DX: A41.9 Sepsis, unspecified organism (principal); R57.8 Other shock; R57.1 Hypovolemic shock; C22.0 Liver cell carcinoma; I85.10 Secondary esophageal varices without bleeding; N17.9 Acute kidney failure, unspecified; E87.20 Acidosis, unspecified; N13.30 Unspecified hydronephrosis; N39.0 Urinary tract infection, site not specified; D62 Acute posthemorrhagic anemia; D61.818 Other pancytopenia; K74.60 Unspecified cirrhosis of liver; N18.30 Chronic kidney disease, stage 3 unspecified; Z85.51 Personal history of malignant neoplasm of bladder; E11.22 Type 2 diabetes mellitus with diabetic chronic kidney disease; D50.9 Iron deficiency anemia, unspecified; I12.9 Hypertensive chronic kidney disease with stage 1 through stage 4 chronic kidney disease, or unspecified chronic kidney disease; N99.520 Hemorrhage of incontinent external stoma of urinary tract; F41.9 Anxiety disorder, unspecified; E78.5 Hyperlipidemia, unspecified; K21.9 Gastro-esophageal reflux disease without esophagitis; G47.33 Obstructive sleep apnea (adult) (pediatric); E03.9 Hypothyroidism, unspecified; Z79.69 Long term (current) use of other immunomodulators and immunosuppressants; Z87.891 Personal history of nicotine dependence; Z79.890 Hormone replacement therapy; Z79.899 Other long term (current) drug therapy; Z88.8 Allergy status to other drugs, medicaments and biological substances

== ENCOUNTER → 2024-02-17 | Outpatient (CLI) | payer MEDICARE, BC ==
[~2024-02-17] MED LIST changes: +ACET1TAB55 PO; +FLUC100T3 PO; +LEVO200T4 PO; +MULT-40 PO
[2024-02-17 11:16] LABS: HEMATOCRIT 27.5 % (42.0-52.0); HEMOGLOBIN 8.5 g/dl (13.5-17.5); MEAN CORPUSCULAR HEMOGLOBIN 31.7 pg (27.0-33.0); MEAN CORPUSCULAR HGB CONC 30.9 g/dl (32.0-36.5); MEAN CORPUSCULAR VOLUME 102.6 fl (80.0-96.0); RED BLOOD COUNT 2.68 10^6/uL (4.30-6.10); WHITE BLOOD COUNT 3.3 10^3/uL (4.0-10.0)
[2024-02-17 11:18] LABS: PLATELET COUNT, AUTOMATED 53 10^3/uL (150-450)
[2024-02-17 11:32] LABS: CALCIUM LEVEL 8.5 MG/DL (8.3-10.6); CREATININE FOR GFR 1.96 MG/DL (0.70-1.30); GLOMERULAR FILTRATION RATE 36.6 (>49); POTASSIUM SERUM 4.2 MMOL/L (3.5-5.1)
== END ==
LOC: M LAB 10:10
PROVIDERS: ATTEND Student in an Organized Health Care Education/Training Program
DX: D61.818 Other pancytopenia (principal)

== ENCOUNTER → 2024-03-21 | Outpatient (REF) | payer MEDICARE, BC, OTHER ==
[~2024-03-21] MED LIST changes: +TIRZ10PE SQ
== END ==
LOC: M SMT 17:14
PROVIDERS: ATTEND Urology
DX: C67.9 Malignant neoplasm of bladder, unspecified (principal)

== ENCOUNTER 2024-05-22 23:00 | Emergency (ER) | payer MEDICARE, BC ==
[~2024-05-22] VITALS: Ht 180.3 cm; Wt 98.9 kg
[2024-05-23 07:59] LABS: BASO % 0.8 % (0.0-1.0); EOS # 0.1 10^3/uL (0.0-0.5); EOS % 3.7 % (0.0-3.0); HEMATOCRIT 32.6 % (42.0-52.0); HEMOGLOBIN 10.3 g/dl (13.5-17.5); LYMPH # 0.5 10^3/uL (1.5-5.0); LYMPH % 14.2 % (24.0-44.0); MEAN CORPUSCULAR HEMOGLOBIN 30.7 pg (27.0-33.0); MEAN CORPUSCULAR HGB CONC 31.6 g/dl (32.0-36.5); MEAN CORPUSCULAR VOLUME 97.3 fl (80.0-96.0); MONO # 0.4 10^3/uL (0.0-0.8); NEUTROPHILS # 2.7 10^3/uL (1.5-8.5); RED BLOOD COUNT 3.35 10^6/uL (4.30-6.10); WHITE BLOOD COUNT 3.8 10^3/uL (4.0-10.0)
[2024-05-23 08:02] LABS: PLATELET COUNT, AUTOMATED 51 10^3/uL (150-450)
[2024-05-23 08:09] LABS: INR 1.46; PROTHROMBIN TIME 17.2 SECONDS (12.5-14.5)
[2024-05-23] MEDS ORDERED: LEVO25TA5 PO (08:15)
[2024-05-23] MEDS ORDERED: HOME MED LIST COMPLETE! XX SCH (08:25)
[2024-05-23 08:30] LABS: CALCIUM LEVEL 8.7 MG/DL (8.3-10.6); CREATININE FOR GFR 1.95 MG/DL (0.70-1.30); GLOMERULAR FILTRATION RATE 36.8 (>49); POTASSIUM SERUM 4.3 MMOL/L (3.5-5.1)
[2024-05-23 09:45] VITALS: BP 110/58; TEMP 96.6; O2SAT 100
== END 2024-05-23 09:51 | disposition home or self-care (01) ==
LOC: M ED 23:00
DX: T83.193A Other mechanical complication of other urinary stent, initial encounter (principal); I10 Essential (primary) hypertension; D50.9 Iron deficiency anemia, unspecified; N18.30 Chronic kidney disease, stage 3 unspecified; G47.33 Obstructive sleep apnea (adult) (pediatric); Z79.899 Other long term (current) drug therapy; Z79.84 Long term (current) use of oral hypoglycemic drugs; Z85.05 Personal history of malignant neoplasm of liver; Z85.51 Personal history of malignant neoplasm of bladder; Z79.52 Long term (current) use of systemic steroids

== ENCOUNTER 2024-05-23 23:58 | Emergency (ER) | payer MEDICARE, BC ==
[~2024-05-23] VITALS: Ht 180.3 cm; Wt 98.6 kg
[2024-05-23 23:58] VITALS: BP 105/55; TEMP 95.6; O2SAT 99
[2024-05-24] MEDS ORDERED: ACETAMINOPHEN 325 MG TAB As Ordered ONE (07:42)
[2024-05-24] MEDS ORDERED: BACITRACIN OINTMENT 30GM TUBE As Ordered ONE (07:53)
[2024-05-24] MEDS ORDERED: methocarbamoL 750 MG TAB As Ordered ONE (07:53)
[2024-05-24 12:10] LABS: BASO # 0.1 10^3/uL (0.0-0.2); BASO % 0.4 % (0.0-1.0); EOS # 0.1 10^3/uL (0.0-0.5); EOS % 0.5 % (0.0-3.0); HEMATOCRIT 30.6 % (42.0-52.0); HEMOGLOBIN 9.9 g/dl (13.5-17.5); LYMPH % 6.4 % (24.0-44.0); MEAN CORPUSCULAR HEMOGLOBIN 30.8 pg (27.0-33.0); MEAN CORPUSCULAR HGB CONC 32.4 g/dl (32.0-36.5); MEAN CORPUSCULAR VOLUME 95.3 fl (80.0-96.0); MONO # 0.7 10^3/uL (0.0-0.8); MONO % 4.7 % (2.0-8.0); NEUTROPHILS # 13.6 10^3/uL (1.5-8.5); NEUTROPHILS % 87.5 % (36.0-66.0); PLATELET COUNT, AUTOMATED 139 10^3/uL (150-450); RED BLOOD COUNT 3.21 10^6/uL (4.30-6.10); WHITE BLOOD COUNT 15.5 10^3/uL (4.0-10.0)
[2024-05-24 12:11] LABS: CALCIUM LEVEL 8.9 MG/DL (8.3-10.6); CK-MB VALUE MASS 2.3 NG/ML (<3.6); CREATININE FOR GFR 2.3 MG/DL (0.70-1.30); GLOMERULAR FILTRATION RATE 30.4 (>49); MB/CK RELATIVE INDEX 3.33 (< OR =4); POTASSIUM SERUM 4.8 MMOL/L (3.5-5.1); THYROID STIMULATING HORMONE 1.077 uIU/ML (0.55-4.78)
[2024-05-24 16:56] LABS: BASO % 0.4 % (0.0-1.0); EOS # 0.1 10^3/uL (0.0-0.5); EOS % 1.4 % (0.0-3.0); HEMATOCRIT 26.6 % (42.0-52.0); HEMOGLOBIN 8.7 g/dl (13.5-17.5); LYMPH % 13.5 % (24.0-44.0); MEAN CORPUSCULAR HEMOGLOBIN 30.9 pg (27.0-33.0); MEAN CORPUSCULAR HGB CONC 32.7 g/dl (32.0-36.5); MEAN CORPUSCULAR VOLUME 94.3 fl (80.0-96.0); MONO # 0.5 10^3/uL (0.0-0.8); MONO % 7.4 % (2.0-8.0); NEUTROPHILS # 5.5 10^3/uL (1.5-8.5); PLATELET COUNT, AUTOMATED 67 10^3/uL (150-450); RED BLOOD COUNT 2.82 10^6/uL (4.30-6.10); WHITE BLOOD COUNT 7.2 10^3/uL (4.0-10.0)
[2024-05-24 16:57] LABS: INR 1.68; PARTIAL THROMBOPLASTIN TIME 33.7 SECONDS (24.8-34.2); PROTHROMBIN TIME 19.2 SECONDS (12.5-14.5)
[2024-05-24 17:50] LABS: CALCIUM LEVEL 9.2 MG/DL (8.3-10.6); CK-MB VALUE MASS 2.3 NG/ML (<3.6); CREATININE FOR GFR 2.28 MG/DL (0.70-1.30); GLOMERULAR FILTRATION RATE 30.7 (>49); MB/CK RELATIVE INDEX 3.59 (< OR =4); POTASSIUM SERUM 4.8 MMOL/L (3.5-5.1)
== END 2024-05-24 14:00 | disposition home or self-care (01) ==
LOC: M ED 23:58
DX: N99.528 Other complication of incontinent external stoma of urinary tract (principal); S50.312A Abrasion of left elbow, initial encounter; E86.0 Dehydration; M54.50 Low back pain, unspecified; W19.XXXA Unspecified fall, initial encounter; I44.4 Left anterior fascicular block; I10 Essential (primary) hypertension; G47.33 Obstructive sleep apnea (adult) (pediatric); K21.9 Gastro-esophageal reflux disease without esophagitis; C61 Malignant neoplasm of prostate; C22.0 Liver cell carcinoma; E11.9 Type 2 diabetes mellitus without complications; Y92.009 Unspecified place in unspecified non-institutional (private) residence as the place of occurrence of the external cause; Y93.89 Activity, other specified; Y99.9 Unspecified external cause status; Z79.899 Other long term (current) drug therapy

== ENCOUNTER 2024-06-07 15:23 | Outpatient (CLI) | payer MEDICARE, BC, OTHER ==
[2024-06-07 15:40] VITALS: BP 107/54; O2SAT 100
[2024-06-07] MEDS ORDERED: NS 250 ML IV ONE (16:00)
[2024-06-07] MEDS ORDERED: SODIUM CHLORIDE 0.9% INJ 10 ML SYR IV PRN (16:00)
[2024-06-07] MEDS ORDERED: diphenhydrAMINE 25MG CAP PO ONE (16:00)
[2024-06-07] MEDS ORDERED: ACETAMINOPHEN 500 MG TAB PO ONE (16:00)
[2024-06-07 16:21] VITALS: BP 116/55; TEMP 98; O2SAT 100
[2024-06-07 17:31] VITALS: BP 144/67; TEMP 97.2; O2SAT 100
[2024-06-07 17:39] VITALS: BP 137/66; O2SAT 100
[2024-06-08] MEDS ORDERED: SODIUM CHLORIDE 0.9% INJ 10 ML SYR IV SCH (09:00)
== END 2024-06-07 17:55 | disposition home or self-care (01) ==
LOC: M INFU 15:23
PROVIDERS: ATTEND Internal Medicine Medical Oncology
DX: C67.9 Malignant neoplasm of bladder, unspecified (principal); E07.9 Disorder of thyroid, unspecified
CPT/HCPCS: 36430; 36591; 80053; 84439; 84443; 84481; 85025; 85049; 85055; 86850; 86900; 86901; 86920; 96413; G0463; J9022; P9016

== ENCOUNTER → 2024-07-31 | Outpatient (REF) | payer MEDICARE, OTHER | LOC: M LAB REF 17:15 | PROVIDERS: ATTEND Internal Medicine Nephrology | DX: N18.9 Chronic kidney disease, unspecified (principal); D63.1 Anemia in chronic kidney disease ==

== ENCOUNTER 2024-08-01 11:42 | Outpatient (CLI) | payer MEDICARE, BC ==
[~2024-08-01] VITALS: Ht 180.3 cm; Wt 104.5 kg
[2024-08-01] VITALS (7 sets, daily range): BP systolic 97–112; BP diastolic 46–58; TEMP 97.2–98.1; O2SAT 95–100
[~2024-08-01 11:42] MED LIST changes: +ACETAMINOPHEN TAB 650MG DOSE (2X325MG) PO ONE; +NS 250 ML IV ONE; +diphenhydrAMINE 25MG CAP PO ONE
[2024-08-01] MEDS: SODIUM CHLORIDE 0.9% INJ 10 ML SYR IV PRN (16:21)
== END 2024-08-01 16:30 | disposition home or self-care (01) ==
LOC: M INFU 11:42
PROVIDERS: ATTEND Internal Medicine Nephrology
DX: N18.9 Chronic kidney disease, unspecified (principal); D63.1 Anemia in chronic kidney disease; C22.0 Liver cell carcinoma; E07.9 Disorder of thyroid, unspecified
CPT/HCPCS: 36430; 36591; 80053; 82105; 84439; 84443; 85025; 85049; 85055; 96523; J1642; P9058

== ENCOUNTER → 2024-08-01 | Outpatient (CLI) | payer MEDICARE, BC ==
[2024-08-01 12:25] LABS: BASO % 0.6 % (0.0-1.0); EOS % 2.2 % (0.0-3.0); HEMATOCRIT 21.4 % (42.0-52.0); LYMPH # 0.3 10^3/uL (1.5-5.0); LYMPH % 18.9 % (24.0-44.0); MEAN CORPUSCULAR HEMOGLOBIN 29.3 pg (27.0-33.0); MEAN CORPUSCULAR HGB CONC 29.4 g/dl (32.0-36.5); MEAN CORPUSCULAR VOLUME 99.5 fl (80.0-96.0); MONO # 0.2 10^3/uL (0.0-0.8); MONO % 9.4 % (2.0-8.0); NEUTROPHILS # 1.2 10^3/uL (1.5-8.5); NEUTROPHILS % 68.9 % (36.0-66.0); RED BLOOD COUNT 2.15 10^6/uL (4.30-6.10); WHITE BLOOD COUNT 1.8 10^3/uL (4.0-10.0)
[2024-08-01 12:51] LABS: HEMOGLOBIN 6.3 g/dl (13.5-17.5); PLATELET COUNT, AUTOMATED 52 10^3/uL (150-450)
[2024-08-01 13:58] LABS: ALBUMIN 2.8 G/DL (3.2-5.2); BILIRUBIN,TOTAL 0.2 MG/DL (0.3-1.2); CALCIUM LEVEL 8.3 MG/DL (8.3-10.6); CREATININE FOR GFR 1.69 MG/DL (0.70-1.30); FREE T4 1.09 NG/DL (0.89-1.76); GLOMERULAR FILTRATION RATE 43.4 (>49); POTASSIUM SERUM 4.2 MMOL/L (3.5-5.1); THYROID STIMULATING HORMONE 0.643 uIU/ML (0.55-4.78); TOTAL PROTEIN 5.8 G/DL (5.7-8.2)
== END ==
LOC: M LAB 11:48
PROVIDERS: ATTEND Internal Medicine Gastroenterology
DX: C22.0 Liver cell carcinoma (principal); E07.9 Disorder of thyroid, unspecified

== ENCOUNTER → 2024-08-28 | Outpatient (REF) | payer MEDICARE, BC, OTHER ==
[~2024-08-28] MED LIST changes: -ACETAMINOPHEN TAB 650MG DOSE (2X325MG) PO ONE; -NS 250 ML IV ONE; -diphenhydrAMINE 25MG CAP PO ONE
[2024-08-28 16:28] LABS: THYROID STIMULATING HORMONE 1.361 uIU/ML (0.55-4.78)
[2024-08-28 16:29] LABS: FREE T4 1.22 NG/DL (0.89-1.76)
[2024-08-28 16:30] LABS: ALBUMIN 3.2 G/DL (3.2-5.2); BILIRUBIN,TOTAL 0.7 MG/DL (0.3-1.2); CREATININE FOR GFR 1.74 MG/DL (0.70-1.30); POTASSIUM SERUM 4.5 MMOL/L (3.5-5.1); TOTAL PROTEIN 6.8 G/DL (5.7-8.2)
== END ==
LOC: M LAB REF 14:18
PROVIDERS: ATTEND Internal Medicine Gastroenterology
DX: C22.0 Liver cell carcinoma (principal); E07.9 Disorder of thyroid, unspecified

== ENCOUNTER → 2024-11-21 | Outpatient (CLI) | payer MEDICARE, BC, OTHER ==
[2024-11-21 17:39] LABS: ALBUMIN 3.3 G/DL (3.2-5.2); BILIRUBIN,TOTAL 0.6 MG/DL (0.3-1.2); CALCIUM LEVEL 8.6 MG/DL (8.3-10.6); CREATININE FOR GFR 1.78 MG/DL (0.70-1.30); GLOMERULAR FILTRATION RATE 40.8 (>49); POTASSIUM SERUM 3.9 MMOL/L (3.5-5.1); TOTAL PROTEIN 7.3 G/DL (5.7-8.2)
[2024-11-21 17:43] LABS: INR 1.35; PROTHROMBIN TIME 16.9 SECONDS (12.5-14.5)
== END ==
LOC: M LAB 16:40
PROVIDERS: ATTEND Internal Medicine Gastroenterology
DX: C22.0 Liver cell carcinoma (principal); Z76.82 Awaiting organ transplant status

== ENCOUNTER 2025-02-20 19:45 | Emergency (ER) | payer MEDICARE, BC, OTHER ==
[~2025-02-20] VITALS: Ht 180.3 cm; Wt 92.8 kg
[2025-02-20 20:59] LABS: BASO % 0.3 % (0.0-1.0); EOS % 0.6 % (0.0-3.0); HEMATOCRIT 23.2 % (42.0-52.0); HEMOGLOBIN 7.5 g/dl (13.5-17.5); LYMPH # 0.3 10^3/uL (1.5-5.0); LYMPH % 10.2 % (24.0-44.0); MEAN CORPUSCULAR HEMOGLOBIN 29.3 pg (27.0-33.0); MEAN CORPUSCULAR HGB CONC 32.3 g/dl (32.0-36.5); MEAN CORPUSCULAR VOLUME 90.6 fl (80.0-96.0); MONO # 0.3 10^3/uL (0.0-0.8); MONO % 9.6 % (2.0-8.0); NEUTROPHILS # 2.6 10^3/uL (1.5-8.5); NEUTROPHILS % 78.7 % (36.0-66.0); RED BLOOD COUNT 2.56 10^6/uL (4.30-6.10); WHITE BLOOD COUNT 3.3 10^3/uL (4.0-10.0)
[2025-02-20 21:07] LABS: PLATELET COUNT, AUTOMATED 36 10^3/uL (150-450)
[2025-02-20 21:13] LABS: INR 1.32; PROTHROMBIN TIME 16.6 SECONDS (12.5-14.5)
[2025-02-20 21:30] LABS: ALBUMIN 2.7 G/DL (3.2-5.2); BILIRUBIN,DIRECT 0.2 MG/DL (<0.4); BILIRUBIN,TOTAL 0.4 MG/DL (0.3-1.2); CALCIUM LEVEL 7.7 MG/DL (8.3-10.6); CREATININE FOR GFR 5.78 MG/DL (0.70-1.30); GLOMERULAR FILTRATION RATE 10.1 (>49); POTASSIUM SERUM 3.7 MMOL/L (3.5-5.1); TOTAL PROTEIN 5.6 G/DL (5.7-8.2)
[2025-02-20] MEDS: NS (Normal Saline) 0.9% 1,000 ML IV SCH (22:29)
[2025-02-20] MEDS ORDERED: SODIUM CHLORIDE 0.9% INJ 10 ML SYR IV PRN (22:45)
[2025-02-21] MEDS ORDERED: GLUCOSE 4 GM CHEW PO PRN (01:50)
[2025-02-21] MEDS ORDERED: DEXTROSE 50% 50ML SYRINGE IV PRN (01:50)
[2025-02-21] MEDS ORDERED: GLUCAGON INJ 1MG VIAL SC PRN (01:50)
[2025-02-21] MEDS ORDERED: TACR1CAP3 PO (01:56)
[2025-02-21] MEDS ORDERED: ACYC1TAB PO (01:56)
[2025-02-21] MEDS ORDERED: MYCO250C PO (01:56)
[2025-02-21] MEDS ORDERED: BACTDSTA PO (01:56)
[2025-02-21] MEDS ORDERED: MIDO5TA PO (01:56)
[2025-02-21] MEDS ORDERED: MAGN400T2 PO (01:56)
[2025-02-21] MEDS ORDERED: NOVOINJ3 SC (01:56)
[2025-02-21] MEDS ORDERED: LANTINJ4 SC (01:56)
[2025-02-21] MEDS ORDERED: LOKE5PAK PO (01:56)
[2025-02-21] MEDS ORDERED: HOME MED LIST COMPLETE! XX SCH (02:00)
[2025-02-21] MEDS ORDERED: MIDODRINE 5 MG TAB PO PRN (02:05)
[2025-02-21 02:11] LABS: KETONE, URINE AUTO RFX NEGATIVE (NEGATIVE); MUCUS, URINE RFX SMALL (NEGATIVE); NITRITE, URINE AUTO RFX NEGATIVE (NEGATIVE); RBC, URINE AUTO RFX 13 /HPF (0-3); SQUAM EPITHELIAL CELL UR AURFX 0 /HPF (0-6)
[2025-02-21 02:12] LABS: LEUKOCYTE ESTERASE UR AUTO RFX 3+ (NEGATIVE); WBC, URINE AUTO RFX 63 /HPF (0-3)
[2025-02-21] MEDS: MYCOPHENOLATE MOFETIL 250 MG CAP (J7517) PO SCH (02:43)
[2025-02-21] MEDS: TACROLIMUS 1MG CAP PO SCH (02:43)
[2025-02-21] MEDS: LEVOTHYROXINE 62.5MCG PER 1/2 TAB (0.0625MG) PO SCH (06:38)
[2025-02-21] MEDS: LEVOTHYROXINE 150MCG TABLET (0.15MG) PO SCH (06:38)
[2025-02-21] MEDS: oxyCODONE 5MG TAB PO ONE (08:25)
[2025-02-21] MEDS: INSULIN LISPRO (NovoLOG) PER UNIT SC SCH (08:26)
[2025-02-21] MEDS: ACYCLOVIR 200 MG CAPSULE PO SCH ×2 (08:27→21:39)
[2025-02-21] MEDS: PRAVASTATIN 20 MG TAB PO SCH (08:27)
[2025-02-21] MEDS: PANTOPRAZOLE 40MG TAB (PROTONIX) PO SCH (08:27)
[2025-02-21] MEDS: SERTRALINE 100 MG TAB PO SCH (08:28)
[2025-02-21] MEDS: MAGNESIUM OXIDE 400MG TAB (MAG-OX) PO SCH (08:28)
[2025-02-21] MEDS ORDERED: BACTRIM 80MG/400MG TAB PO SCH (09:00)
[2025-02-21] MEDS: ACETAMINOPHEN 325 MG TAB PO ONE (10:21)
[2025-02-21] MEDS: LanTUS (INSULIN GLARGINE INJ) 1 UNITS/0.01 ML SC SCH (10:22)
[2025-02-21 12:32] LABS: BASO % 0.3 % (0.0-1.0); HEMATOCRIT 25.6 % (42.0-52.0); HEMOGLOBIN 8.1 g/dl (13.5-17.5); LYMPH # 0.3 10^3/uL (1.5-5.0); LYMPH % 9.1 % (24.0-44.0); MEAN CORPUSCULAR HEMOGLOBIN 29.1 pg (27.0-33.0); MEAN CORPUSCULAR HGB CONC 31.6 g/dl (32.0-36.5); MEAN CORPUSCULAR VOLUME 92.1 fl (80.0-96.0); MONO # 0.3 10^3/uL (0.0-0.8); MONO % 7.8 % (2.0-8.0); NEUTROPHILS # 2.6 10^3/uL (1.5-8.5); NEUTROPHILS % 81.9 % (36.0-66.0); RED BLOOD COUNT 2.78 10^6/uL (4.30-6.10); WHITE BLOOD COUNT 3.2 10^3/uL (4.0-10.0)
[2025-02-21 12:35] LABS: PLATELET COUNT, AUTOMATED 42 10^3/uL (150-450); SOURCE PERIPHERAL SMEAR
[2025-02-21 12:52] LABS: URIC ACID 10.7 MG/DL (3.7-9.2)
[2025-02-21 13:03] LABS: ALBUMIN 2.7 G/DL (3.2-5.2); ALKALINE PHOSPHATASE 179 U/L (40-129); ALT/SGPT 60 U/L (7.0-40); AST/SGOT 30 U/L (<34); BILIRUBIN,TOTAL 0.4 MG/DL (0.3-1.2); BLOOD UREA NITROGEN 54 MG/DL (9-23); CARBON DIOXIDE LEVEL < 10.0 MMOL/L (20-31); CHLORIDE LEVEL 109 MMOL/L (98-107); GLOMERULAR FILTRATION RATE 9.1 (>49); GLUCOSE, FASTING 125 MG/DL (74-106); MAGNESIUM LEVEL 1.6 MG/DL (1.8-2.4); POTASSIUM SERUM 4.3 MMOL/L (3.5-5.1); SODIUM LEVEL 136 MMOL/L (136-145); TOTAL PROTEIN 5.4 G/DL (5.7-8.2)
[2025-02-21 13:06] LABS: POTASSIUM RANDOM URINE 5.7 MMOL/L
[2025-02-21 13:16] LABS: CREATININE,RANDOM URINE 122.3 MG/DL
[2025-02-21 13:36] LABS: C REACTIVE PROTEIN QUANTITATIV 15.15 MG/DL (<1.0)
[2025-02-21] MEDS: SODIUM BICARBONATE 150 MEQ in STERILE WATER LITER BAG 1,000 ML IV SCH (13:36)
[2025-02-21 13:48] LABS: COMPLEMENT C3 95.4 MG/DL (90.0-170.0); COMPLEMENT C4 11.6 MG/DL (12-36)
[2025-02-21] MEDS: ONDANSETRON 4MG 2ML VIAL IV PRN (17:27)
[2025-02-21 19:26] VITALS: TEMP 97.6
[2025-02-22 00:06] LABS: VENOUS BASE EXCESS -17.7 (-2.0-2.0); VENOUS HCO3 9.3 MMOL/L (23.0-27.0); VENOUS O2 SATURATION 79.8 % (60.0-80.0); VENOUS PARTIAL PRESSURE CO2 26.3 mmHg (38.0-50.0); VENOUS PARTIAL PRESSURE O2 48.2 mmHg (30.0-50.0); VENOUS PH 7.168 UNITS (7.330-7.430); VENOUS STANDARD HCO3 10.7 MMOL/L; VENOUS TOTAL CO2 10.1 MMOL/L (24.0-28.0)
[2025-02-22 00:18] LABS: BASO % 0.6 % (0.0-1.0); EOS % 0.3 % (0.0-3.0); HEMATOCRIT 27.2 % (42.0-52.0); HEMOGLOBIN 8.8 g/dl (13.5-17.5); LYMPH # 0.4 10^3/uL (1.5-5.0); LYMPH % 6.5 % (24.0-44.0); MEAN CORPUSCULAR HEMOGLOBIN 29.5 pg (27.0-33.0); MEAN CORPUSCULAR HGB CONC 32.4 g/dl (32.0-36.5); MEAN CORPUSCULAR VOLUME 91.3 fl (80.0-96.0); MONO # 0.4 10^3/uL (0.0-0.8); MONO % 6.2 % (2.0-8.0); NEUTROPHILS # 5.8 10^3/uL (1.5-8.5); NEUTROPHILS % 85.5 % (36.0-66.0); RED BLOOD COUNT 2.98 10^6/uL (4.30-6.10); WHITE BLOOD COUNT 6.8 10^3/uL (4.0-10.0)
[2025-02-22 00:24] LABS: PLATELET COUNT, AUTOMATED 76 10^3/uL (150-450)
[2025-02-22 00:38] LABS: CALCIUM LEVEL 7.9 MG/DL (8.3-10.6); CREATININE FOR GFR 6.2 MG/DL (0.70-1.30); GLOMERULAR FILTRATION RATE 9.2 (>49); MAGNESIUM LEVEL 1.5 MG/DL (1.8-2.4); POTASSIUM SERUM 4.3 MMOL/L (3.5-5.1)
[2025-02-22 09:22] VITALS: BP 112/59; O2SAT 98
[2025-02-22 09:25] LABS: BASO % 0.3 % (0.0-1.0); EOS % 0.5 % (0.0-3.0); HEMATOCRIT 23.1 % (42.0-52.0); HEMOGLOBIN 7.5 g/dl (13.5-17.5); LYMPH # 0.3 10^3/uL (1.5-5.0); MEAN CORPUSCULAR HEMOGLOBIN 29.3 pg (27.0-33.0); MEAN CORPUSCULAR HGB CONC 32.5 g/dl (32.0-36.5); MEAN CORPUSCULAR VOLUME 90.2 fl (80.0-96.0); MONO # 0.4 10^3/uL (0.0-0.8); MONO % 10.8 % (2.0-8.0); NEUTROPHILS # 3.2 10^3/uL (1.5-8.5); NEUTROPHILS % 80.4 % (36.0-66.0); RED BLOOD COUNT 2.56 10^6/uL (4.30-6.10)
[2025-02-22 09:31] LABS: PLATELET COUNT, AUTOMATED 48 10^3/uL (150-450)
[2025-02-22 09:43] LABS: ALBUMIN 2.5 G/DL (3.2-5.2); BILIRUBIN,TOTAL 0.5 MG/DL (0.3-1.2); CALCIUM LEVEL 7.7 MG/DL (8.3-10.6); CREATININE FOR GFR 6.44 MG/DL (0.70-1.30); GLOMERULAR FILTRATION RATE 8.8 (>49); MAGNESIUM LEVEL 1.4 MG/DL (1.8-2.4); TOTAL PROTEIN 5.1 G/DL (5.7-8.2)
== END 2025-02-22 09:27 | disposition short-term general hospital (02) ==
LOC: M ED 19:45
DX: N17.9 Acute kidney failure, unspecified (principal); D64.9 Anemia, unspecified; E03.9 Hypothyroidism, unspecified; E11.9 Type 2 diabetes mellitus without complications; Z79.2 Long term (current) use of antibiotics; Z79.4 Long term (current) use of insulin; Z79.899 Other long term (current) drug therapy
CPT/HCPCS: 74176; 80048; 80053; 80076; 80503; 81001; 82570; 82803; 83010; 83605; 83615; 83690; 83735; 83935; 84133; 84300; 84550; 85025; 85049; 85055; 85610; 85730; 86140; 86160; 87088; 87186; 93041; 96360; 96361; 96372; 99285; J1815; J2405; J7507; J7517

== ENCOUNTER 2025-03-10 18:06 | Emergency (ER) | payer MEDICARE, BC ==
[~2025-03-10] VITALS: Ht 180.3 cm; Wt 94.7 kg
[~2025-03-10 18:06] MED LIST changes: +ACYC1TAB PO; +BACTDSTA PO; +LANTINJ4 SC; -LEVO200C PO; +LEVO200C2 PO; +LOKE5PAK PO; +MAGN400T2 PO; +MIDO5TA PO; +MYCO250C PO; +NOVOINJ3 SC; +TACR1CAP3 PO
[2025-03-10 19:28] LABS: BASO # 0.1 10^3/uL (0.0-0.2); BASO % 1.2 % (0.0-1.0); EOS # 0.2 10^3/uL (0.0-0.5); EOS % 3.2 % (0.0-3.0); HEMOGLOBIN 8.7 g/dl (13.5-17.5); LYMPH # 0.3 10^3/uL (1.5-5.0); LYMPH % 4.9 % (24.0-44.0); MEAN CORPUSCULAR HEMOGLOBIN 29.3 pg (27.0-33.0); MEAN CORPUSCULAR HGB CONC 31.1 g/dl (32.0-36.5); MEAN CORPUSCULAR VOLUME 94.3 fl (80.0-96.0); MONO # 0.4 10^3/uL (0.0-0.8); MONO % 7.5 % (2.0-8.0); NEUTROPHILS # 4.1 10^3/uL (1.5-8.5); NEUTROPHILS % 81.6 % (36.0-66.0); RED BLOOD COUNT 2.97 10^6/uL (4.30-6.10); WHITE BLOOD COUNT 5.1 10^3/uL (4.0-10.0)
[2025-03-10 19:29] LABS: PLATELET COUNT, AUTOMATED 71 10^3/uL (150-450)
[2025-03-10 20:06] LABS: ALBUMIN 2.6 G/DL (3.2-5.2); BILIRUBIN,TOTAL 0.6 MG/DL (0.3-1.2); CALCIUM LEVEL 8.7 MG/DL (8.3-10.6); CREATININE FOR GFR 6.33 MG/DL (0.70-1.30); POTASSIUM SERUM 4.8 MMOL/L (3.5-5.1); TOTAL PROTEIN 5.5 G/DL (5.7-8.2)
[2025-03-10] MEDS: NS (Normal Saline) 0.9% 1,000 ML IV SCH (21:00)
[2025-03-11 00:06] LABS: CREATININE,RANDOM URINE 102.3 MG/DL
[2025-03-11] MEDS ORDERED: MIDODRINE 5 MG TAB PO PRN (00:10)
[2025-03-11] MEDS ORDERED: PRAV80TA2 PO (00:39)
[2025-03-11] MEDS ORDERED: VANC125C12 PO (00:39)
[2025-03-11] MEDS ORDERED: HOME MED LIST COMPLETE! XX SCH (00:40)
[2025-03-11] MEDS ORDERED: DEXTROSE 50% 50ML SYRINGE IV PRN (01:35)
[2025-03-11] MEDS ORDERED: GLUCAGON INJ 1MG VIAL SC PRN (01:35)
[2025-03-11] MEDS ORDERED: GLUCOSE 4 GM CHEW PO PRN (01:35)
[2025-03-11 06:00] VITALS: TEMP 98.4
[2025-03-11] MEDS ORDERED: LEVOTHYROXINE 12.5MCG PER 1/2 TAB (0.0125MG) PO SCH (06:00)
[2025-03-11 06:15] VITALS: BP 109/59; O2SAT 99
[2025-03-11] MEDS: LEVOTHYROXINE 100MCG TABLET (0.1MG) PO SCH (06:24)
[2025-03-11] MEDS ORDERED: INSULIN LISPRO (NovoLOG) PER UNIT SC SCH ×2 (07:30→21:00)
[2025-03-11] MEDS ORDERED: MULTIVITAMINS/MINERALS THERAP 1 TAB PO SCH (09:00)
[2025-03-11] MEDS ORDERED: PANTOPRAZOLE 40MG TAB (PROTONIX) PO SCH (09:00)
[2025-03-11] MEDS ORDERED: LanTUS (INSULIN GLARGINE INJ) 1 UNITS/0.01 ML SC SCH (09:00)
[2025-03-11] MEDS ORDERED: VANCOMYCIN 125MG CAPSULE PO SCH (09:00)
[2025-03-11] MEDS ORDERED: TACROLIMUS 1MG CAP PO SCH (09:00)
[2025-03-11] MEDS ORDERED: MAGNESIUM OXIDE 400MG TAB (MAG-OX) PO SCH (09:00)
[2025-03-11] MEDS ORDERED: SERTRALINE 100 MG TAB PO SCH (09:00)
[2025-03-11] MEDS ORDERED: ACYCLOVIR 200 MG CAPSULE PO SCH (09:00)
[2025-03-11] MEDS ORDERED: PRAVASTATIN 20 MG TAB PO SCH (21:00)
[2025-03-12] MEDS ORDERED: BACTRIM 160MG/800MG DS TAB PO SCH (09:00)
== END 2025-03-11 06:36 | disposition short-term general hospital (02) ==
LOC: M ED 18:06
DX: N99.0 Postprocedural (acute) (chronic) kidney failure (principal); C67.9 Malignant neoplasm of bladder, unspecified; C61 Malignant neoplasm of prostate; E78.5 Hyperlipidemia, unspecified; D50.9 Iron deficiency anemia, unspecified; Z79.2 Long term (current) use of antibiotics; Z79.4 Long term (current) use of insulin; Z79.899 Other long term (current) drug therapy

== ENCOUNTER 2025-06-07 05:01 | Emergency (ER) | payer MEDICARE, BC ==
[~2025-06-07] VITALS: Ht 180.3 cm; Wt 79.5 kg
[~2025-06-07 05:01] MED LIST changes: +ACYC-438 PO; -ACYC1TAB PO; +ELIQ5TAB PO; +FERR1TAB8 PO; +PERC5TAB12 PO; +PRAV10TA PO; -PRAV10TA4 PO; -PRAV80TA2 PO; +PRAV80TA75 PO; +PRED5TA PO; +VANC125C12 PO
[2025-06-07 05:58] LABS: KETONE, URINE AUTO RFX NEGATIVE (NEGATIVE); MUCUS, URINE RFX SMALL (NEGATIVE); NITRITE, URINE AUTO RFX NEGATIVE (NEGATIVE); RBC, URINE AUTO RFX 5 /HPF (0-3); SQUAM EPITHELIAL CELL UR AURFX 1 /HPF (0-6)
[2025-06-07 06:04] LABS: KETONE, URINE AUTO RFX NEGATIVE (NEGATIVE); LEUKOCYTE ESTERASE UR AUTO RFX 3+ (NEGATIVE); NITRITE, URINE AUTO RFX NEGATIVE (NEGATIVE); RBC, URINE AUTO RFX 5 /HPF (0-3); SQUAM EPITHELIAL CELL UR AURFX 0 /HPF (0-6); WBC, URINE AUTO RFX 155 /HPF (0-3)
[2025-06-07 06:05] LABS: LEUKOCYTE ESTERASE UR AUTO RFX 3+ (NEGATIVE); WBC, URINE AUTO RFX 114 /HPF (0-3)
[2025-06-07 06:24] LABS: PLATELET COUNT, AUTOMATED 117 10^3/uL (150-450)
[2025-06-07 06:47] LABS: ALT/SGPT 15.0 U/L (7.0-40); AST/SGOT 20.0 U/L (<34); CALCIUM LEVEL 8.9 MG/DL (8.3-10.6); CARBON DIOXIDE LEVEL 22.0 MMOL/L (20-31); CHLORIDE LEVEL 102.0 MMOL/L (98-107); CPK CREATINE PHOSPHOKINASE 32.0 U/L (46-171); CREATININE FOR GFR 3.69 MG/DL (0.70-1.30); GLOMERULAR FILTRATION RATE 17.2 (>49); POTASSIUM SERUM 3.3 MMOL/L (3.5-5.1); SODIUM LEVEL 141.0 MMOL/L (136-145)
[2025-06-07 06:49] LABS: BASOPHILS 1 % (0-1); EOSINOPHILS 2 % (0-3); LYMPHOCYTES 4 % (16-44); MONOCYTES 3 % (0-5); NEUTROPHILS 90 % (28-66); PLATELET ESTIMATE DECREASED (NORMAL)
[2025-06-07 07:16] VITALS: TEMP 97.5
[2025-06-07] MEDS: ONDANSETRON 4MG 2ML VIAL IV ONE (08:23)
[2025-06-07] MEDS ORDERED: VALG450T10 PO (11:37)
[2025-06-07] MEDS ORDERED: ATOV5SUS PO (11:37)
[2025-06-07] MEDS ORDERED: SIME80CH6 PO (11:37)
[2025-06-07] MEDS ORDERED: LOKE10PA PO (11:37)
[2025-06-07] MEDS ORDERED: MIRT-10 PO (11:37)
[2025-06-07] MEDS ORDERED: MIRA3350 PO (11:37)
[2025-06-07] MEDS ORDERED: FLUD0.1T PO (11:37)
[2025-06-07] MEDS ORDERED: HOME MED LIST COMPLETE! XX SCH (11:40)
[2025-06-07 21:15] VITALS: BP 92/52
[2025-06-07 21:21] VITALS: O2SAT 100
== END 2025-06-07 21:00 | disposition short-term general hospital (02) ==
LOC: EDBD 05:01 → M ED 05:01 → EEVIPCON 05:01 → M ED 21:00
DX: S22.068A Other fracture of T7-T8 thoracic vertebra, initial encounter for closed fracture (principal); J91.8 Pleural effusion in other conditions classified elsewhere; Z94.4 Liver transplant status; Y92.019 Unspecified place in single-family (private) house as the place of occurrence of the external cause; Y93.9 Activity, unspecified; Y99.9 Unspecified external cause status; W01.0XXA Fall on same level from slipping, tripping and stumbling without subsequent striking against object, initial encounter; R00.0 Tachycardia, unspecified; I25.2 Old myocardial infarction; D50.9 Iron deficiency anemia, unspecified; G47.33 Obstructive sleep apnea (adult) (pediatric); E78.5 Hyperlipidemia, unspecified; N18.9 Chronic kidney disease, unspecified; F10.10 Alcohol abuse, uncomplicated; Z79.4 Long term (current) use of insulin; Z79.899 Other long term (current) drug therapy; Z79.810 Long term (current) use of selective estrogen receptor modulators (SERMs)
CPT/HCPCS: 51701; 70450; 71045; 71250; 72125; 72128; 72131; 80053; 81001; 82550; 83605; 83690; 84443; 85025; 87088; 87186; 87486; 87581; 87633; 87798; 93005; 96374; 96375; 96376; 99285; J2405; J3010